=== PATIENT | female | born 1975 | race Caucasian/White ===

== ENCOUNTER 2016-04-17 10:07 | Emergency (ER) | payer BC, OTHER ==
[~2016-04-17] VITALS: Ht 170.2 cm; Wt 70.4 kg
[~2016-04-17 10:07] MED LIST: MTR600X PO; PRENTAB26 PO
[2016-04-17 10:27] VITALS: TEMP 36.8; Ht 170.2 cm; Wt 70.4 kg
[2016-04-17] MEDS ORDERED: ONDANSETRON INJ 2 MG/ML 2 ML VIAL ONE (10:38)
[2016-04-17] MEDS ORDERED: MoRPHine SULFATE 2 MG/ML CARP ONE (10:38)
[2016-04-17] MEDS ORDERED: MoRPHine SULFATE 4 MG/ML 1 ML CARP\\VIAL ONE (10:38)
[2016-04-17] MEDS ORDERED: BCPILLS PO (10:54)
[2016-04-17] MEDS ORDERED: SODIUM CHLORIDE 0.9% 1000ML 500 ML IV ONE (11:01)
[2016-04-17] MEDS ORDERED: ONDANSETRON INJ 2 MG/ML 2 ML VIAL IV STA (11:01)
[2016-04-17 11:14] LABS: HEMATOCRIT 44.2 % (37-47); MEAN CELL VOLUME 88.4 fL (80-100); MEAN CORPUSCULAR HEMOGLOBIN 30.2 pg (25-34); MEAN CORPUSCULAR HGB CONC 34.2 g/dl (32-36); MEAN PLATELET VOLUME 10.1 fL (7.4-10.4); PLATELET COUNT 252 K/uL (130-400); WHITE BLOOD COUNT 7.27 K/uL (4.8-10.8)
[2016-04-17] MEDS ORDERED: MoRPHine SULFATE 10 MG/ML CARP/VIAL IV PRN (11:15)
[2016-04-17 11:22] LABS: BUN/CREATININE RATIO 15.1 (10-20); CREATININE 0.83 mg/dl (0.60-1.20); POTASSIUM 3.7 mmol/L (3.5-5.1)
[2016-04-17] MEDS ORDERED: SODIUM CHLORIDE 0.9% 1000ML 1,000 ML IV STA (11:58)
--- NOTE | 2016-04-17 13:05 | DIAGNOSTIC IMAGING REPORT ---
CT OF THE ABDOMEN AND PELVIS WITHOUT CONTRAST, STONE PROTOCOL CLINICAL HISTORY: Right flank pain. COMPARISON STUDY: Pelvic ultrasound November 04, 2015. TECHNIQUE: Helical axial images of the abdomen and pelvis were obtained without IV or oral contrast according to renal stone protocol. FINDINGS: Multiple bilateral renal calculi measure up to 5 mm. There is mild right periureteral infiltration. No ureteral calculus is present. There is mild right hydronephrosis and hydroureter. Evaluation of the remainder of the abdomen and pelvis is suboptimal on this unenhanced exam. Size of the spleen is at the upper limits of normal. Unenhanced images of liver, spine adrenal glands and pancreas are normal. There is no evidence for a bowel obstruction. There is no lymphadenopathy. A tampon is in place. Skeletal structures are unremarkable. IMPRESSION: 1. Mild right hydronephrosis and mild right perinephric and periureteral infiltration. No ureteral calculus. The findings suggest a recently passed right sided calculus. An infectious process could appear similar. 2. Bilateral nephrolithiasis. Electronically signed by: Byron Restrepo M.D. 04/17/2016 1:03 PM Dictated Date/Time: 04/17/2016 12:58 PM
[2016-04-17 13:20] LABS: URINE APPEARANCE CLEAR (CLEAR); URINE BILIRUBIN NEG (NEG); URINE COLOR YELLOW; URINE NITRITE NEG (NEG); URINE SPECIFIC GRAVITY 1.014 (1.000-1.030); UROBILINOGEN NEG (NEG)
[2016-04-17 13:25] LABS: MANUAL MICROSCOPIC REQUIRED? NO; REVIEW REQ? YES
[2016-04-17 13:38] LABS: ZZUR CULT IF INDIC CLEAN CATCH YES
[2016-04-17] MEDS ORDERED: OXYC-57 PO (14:00)
--- NOTE | 2016-04-17 14:01 | EMERGENCY ROOM VISIT NOTE ---
ED Visit Note First contact with patient: 11:36 CHIEF COMPLAINT: Right flank pain x 6 hours HISTORY OF PRESENT ILLNESS: Patient is a 40-year-old white female with known history of kidney stones who presents to the emergency department for evaluation of right-sided flank pain with associated nausea and vomiting that started acutely around 4:00 in the morning. Patient states that she woke with a dull, achy right back pain that radiated to her right flank and right lower quadrant. It steadily worsened and around 8:00 she had some loose bowel movements, nausea and vomiting. She states that this is very similar to her prior kidney stone which she experienced last in 2008. She states that she has required lithotripsy and stent placement for her kidney stones in the past. She is probably menstruating. She denies any fever. At the time of my evaluation of the patient, she had received morphine and Zofran per critical pathways and was much more comfortable. She had originally rated her pain a 10/ 10, at my evaluation, she reported that she was pain-free. She is noting more pressure in the right groin area presently. REVIEW OF SYSTEMS: Review of systems as per HPI. All other systems reviewed were negative. 10 systems reviewed. PMH: Electronic medical records are reviewed and summarized as above/below. See Problem List. SOCIAL HISTORY: Patient lives at home with her family. Nonsmoker. PHYSICAL EXAM: Vital Signs: Reviewed Nurse's notes. CONSTITUTIONAL: Patient is a well-appearing 40-year-old white female who is awake and alert and laying on the gurney in no acute distress. A family members at the bedside. EYES: Pupils equal, round, reactive to light and accommodation. EOMs intact without nystagmus. Sclera are anicteric. ENT: Tympanic membranes intact, with normal landmarks. External canals are clear. Oral and nasopharynx are clear. Mucous membranes are moist, no lesions , tongue and gums appear normal. NECK: No bruits auscultated. Supple without lymphadenopathy. No thyromegaly. No meningeal signs. Full active range of motion without discomfort. CARDIOVASCULAR: Regular rate and rhythm, with normal S1 and S2, no murmur or gallop or rub is heard. No carotid bruits auscultated. No JVD. Peripheral pulses easily palpable. RESPIRATORY: Breath sounds equal and clear to auscultation without wheezes, rales, or rhonchi heard. Full and equal chest expansion without accessory muscle use or retractions. ABDOMEN: Bowel sounds are present. Abdomen is soft, nontender and nondistended. No guarding or rebound. INTEGUMENTARY: No lesions or rash, normal skin turgor. LYMPH: No lymphadenopathy. EMERGENCY DEPARTMENT COURSE: The patient was seen and assessed as above. Her old records are reviewed. As mentioned above, critical pathways had been implemented prior to my evaluation of the patient. IV access was obtained. She was hydrated with normal saline solution. Patient received Zofran 4 mg and morphine 6 mg IV per critical. CBC, BMP, and urinalysis were performed. I did discuss with the patient imaging options. 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 Patient's laboratory studies revealed a normal white count. She is not anemic. Electrolytes and renal function are normal. Urinalysis demonstrates 2+ occult blood and 10-30 rbc's, no other indicators for infection. This is likely related to her kidney stone as well as possible contamination from her menses. Patient went for CAT scan. I was notified by her nurse that when they strained the urine that she had provided for urinalysis, there was debris and a small stone in the urine. CT demonstrated multiple bilateral renal calculi measuring up to 5 mm. There is mild right periureteral infiltration, hydronephrosis and hydroureter, but no evidence for right-sided ureteral calculus. No other acute pathology was noted. The patient was reassessed and made aware of the results of her laboratory and diagnostic imaging studies. It appears that she has passed the stone. This findings on CT scan I suspect are more likely related to the passed stone and less likely related to infection given her presentation and findings on urinalysis. Differential diagnoses also included UTI, pyelonephritis, ovarian cyst, ovarian torsion, , ectopic , among others. The patient continued to remain pain-free while in the emergency Department completing the remainder of her workup. Supportive care measures were discussed. She was amenable to a small prescription for something for pain, but did not feel that she would need it moving forward. She rated her discomfort a 3/[address] OF THE ABDOMEN AND PELVIS WITHOUT CONTRAST, STONE PROTOCOL CLINICAL HISTORY: Right flank pain. COMPARISON STUDY: Pelvic ultrasound November 04, 2015. TECHNIQUE: Helical axial images of the abdomen and pelvis were obtained without IV or oral contrast according to renal stone protocol. FINDINGS: Multiple bilateral renal calculi measure up to 5 mm. There is mild right periureteral infiltration. No ureteral calculus is present. There is mild right hydronephrosis and hydroureter. Evaluation of the remainder of the abdomen and pelvis is suboptimal on this unenhanced exam. Size of the spleen is at the upper limits of normal. Unenhanced images of liver, spine adrenal glands and pancreas are normal. There is no evidence for a bowel obstruction. There is no lymphadenopathy. A tampon is in place. Skeletal structures are unremarkable. IMPRESSION: 1. Mild right hydronephrosis and mild right perinephric and periureteral infiltration. No ureteral calculus. The findings suggest a recently passed right sided calculus. An infectious process could appear similar. 2. Bilateral nephrolithiasis. Problem List Medical Problems: (1) Calculus Of Kidney Status: Chronic (2) Encounter for supervision of elderly multigravida in third trimester, antepartum Status: Resolved (3) Threatened miscarriage Status: Resolved Surgical Problems: (1) H/O section Status: Resolved (2) History of lithotripsy Status: Resolved Current/Historical Medications Scheduled Control Pills ( Control Pills), 1 TAB PO DAILY Scheduled PRN Oxycodone/Acetaminophen 5MG/325MG (Percocet 5MG/325MG), 1 TAB PO Q4H PRN for Pain Allergies Coded Allergies: Pomegranate (Verified Allergy, Unknown, HIVES, 04/17/16) Vital Signs Date Time Temp Pulse Resp B/P Pulse Ox O2 Delivery O2 Flow Rate FiO2 04/17/16 14:13 54 14 157/93 98 04/17/16 13:03 68 16 157/93 98 Room Air 04/17/16 12:09 65 18 134/97 98 Room Air 04/17/16 10:27 36.8 71 18 165/82 99 Room Air Laboratory Results 04/17/16 10:50 04/17/16 10:50 Test 04/17/16 10:50 04/17/16 12:50 Red Blood Count 5.00 M/uL (4.2-5.4) Mean Corpuscular Volume 88.4 fL (80-100) Mean Corpuscular Hemoglobin 30.2 pg (25-34) Mean Corpuscular Hemoglobin Concent 34.2 g/dl (32-36) RDW Standard Deviation 41.0 fL (36.4-46.3) RDW Coefficient of Variation 12.8 % (11.5-14.5) Mean Platelet Volume 10.1 fL (7.4-10.4) Anion Gap 10.0 mmol/L (3-11) Est Creatinine Clear Calc Drug Dose 87.6 ml/min Estimated GFR () 102.2 Estimated GFR (Non- 88.2 BUN/Creatinine Ratio 15.1 (10-20) Calcium Level 9.0 mg/dl (8.5-10.1) Urine Color YELLOW Urine Appearance CLEAR (CLEAR) Urine pH 8.0 (4.5-7.5) Urine Specific [place] 1.014 (1.000-1.030) Urine Protein NEG (NEG) Urine Glucose (UA) NEG (NEG) Urine Ketones NEG (NEG) Urine Occult Blood 2+ (NEG) Urine Nitrite NEG (NEG) Urine Bilirubin NEG (NEG) Urine Urobilinogen NEG (NEG) Urine Leukocyte Esterase NEG (NEG) Urine WBC (Auto) 1-5 /hpf (0-5) Urine RBC (Auto) 10-30 /hpf (0-4) Urine Hyaline Casts (Auto) 1-5 /lpf (0-5) Urine Epithelial Cells (Auto) 5-10 /lpf (0-5) Urine Bacteria (Auto) 1+ (NEG) Urine Renal Epithelial Cells /lpf (0-5) Medications Administered Medications (Trade) Dose Ordered Sig/Jane Route Start Time Stop Time Status Last Admin Dose Admin Morphine Sulfate (MoRPHine SULFATE INJ) 4 mg STK-MED ONCE .ROUTE 04/17/16 10:38 04/17/16 10:40 DC 04/17/16 11:00 4 MG Morphine Sulfate (MoRPHine SULFATE INJ) 2 mg STK-MED ONCE .ROUTE 04/17/16 10:38 04/17/16 10:40 DC 04/17/16 10:38 2 MG Ondansetron HCl 4 mg 4 mg STK-MED ONCE .ROUTE 04/17/16 10:38 04/17/16 10:40 DC 04/17/16 11:01 4 MG Sodium Chloride 500 ml @ 999 mls/hr Q31M ONCE IV 04/17/16 11:01 1/23/17 11:31 DC 04/17/16 11:00 999 MLS/HR Sodium Chloride (Nss 1000ml) 1,000 ml @ 250 mls/hr Q4H STAT IV 04/17/16 11:58 04/17/16 15:37 DC 04/17/16 11:58 250 MLS/HR Departure Information Impression Primary Impression: Renal colic on right side Prescriptions Oxycodone/Acetaminophen 5MG/325MG (PERCOCET 5MG/325MG) Tab 1 TAB PO Q4H Y for Pain, #5 TAB For Initial Treatment Prov: Rose Lennon PA 04/17/16 Referrals Anton Altamirano M.D. (PCP) Patient Instructions My [facility] Additional Instructions DO NOT drive, drink alcohol, operate machinery, or perform dangerous activities today. You were given medications in the ER that can affect your ability to safely function or operate a vehicle. Percocet 5/325 mg: Take 1-2 pills every four hours for breakthrough pain. Avoid alcohol, operating machinery or dangerous equipment, working on ladders or roofs, DRIVING, or situations where being under the influence may be dangerous. It is recommended to use an ifyi-cew-hapmsgu stool softener such as Colace, 100mg twice daily while taking this medication to avoid constipation. Ibuprofen(Motrin, Advil) may be used for fever or pain. Use 600mg every six hours as needed. Take with food. Avoid using more than 2400mg in a 24 hour period. Do not use 2400mg per day for more than three consecutive days without physician direction. Prolonged inappropriate use can lead to stomach upset or ulcers. This medication can be taken if you need to drive, work, or perform activities which may be dangerous when taking narcotic pain medication. (AND/OR) Acetaminophen(Tylenol) may be used for fever or pain. Use 1000mg every six hours as needed. Avoid using more than 4000mg in a 24 hour period. This medication can be taken if you need to drive, work, or perform activities which may be dangerous when taking narcotic pain medication. Rest and avoid strenuous activity until your stone passes and symptoms resolve. Drink plenty of fluids. Continue current medications. Return to the ER for worsening abdominal or back pain, vomiting, fevers, passing out, or as needed. Follow up with your primary care provider for further care and management.
[2016-04-17 14:13] VITALS: BP 157/93; PULSE 54; O2SAT 98
== END 2016-04-17 14:17 | disposition home or self-care (01) ==
LOC: C.EDB 10:07
DX: N23 Unspecified renal colic (principal)

== ENCOUNTER → 2016-12-15 | Outpatient (CLI) | payer OTHER ==
[~2016-12-15] MED LIST changes: +BCPILLS PO; +FLM4 PO; -MTR600X PO; +NORE-14 PO; +OXYC1TAB3 PO; -PRENTAB26 PO; +SULF800T23 PO; +TRD10 PO; +ZFRODT4HP PO
--- NOTE | 2016-12-15 15:47 | MAMMOGRAPHY REPORT ---
BILATERAL DIGITAL SCREENING MAMMOGRAM TOMOSYNTHESIS WITH CAD: 12/15/2016 CLINICAL HISTORY: Routine screening. TECHNIQUE: Breast tomosynthesis in addition to standard 2D mammography was performed. Current study was also evaluated with a Computer Aided Detection (CAD) system. COMPARISON: Comparison is made to exams dated: 12/27/2015 mammogram, 12/27/2015 ultrasound, 04/22/2013 mammogram, and 12/14/2015 mammogram - [facility]. BREAST COMPOSITION: The tissue of both breasts is heterogeneously dense, which may obscure small mas ses. FINDINGS: No suspicious masses, calcifications, or areas of architectural distortion are noted in ei ther breast. There has been no significant interval change compared to prior exams. IMPRESSION: ACR BI-RADS CATEGORY 1: NEGATIVE There is no mammographic evidence of malignancy. A 1 year screening mammogram is recommended. The pa tient will receive written notification of the results. Approximately 10% of breast cancers are not detected with mammography. A negative mammographic report should not delay biopsy if a clinically suggestive mass is present. Simi Puga M.D. ah/:12/15/2016 12:58:14 [employer]oom Changeover Operator: Guadalupe GIORDANO(R)(M), [facility] letter sent: Normal 1/2 BI-RADS Code: ACR BI-RADS Category 1: Negative
== END | disposition home or self-care (01) ==
LOC: C.MAMM 10:25
PROVIDERS: ATTEND Obstetrics & Gynecology
DX: Z12.31 Encounter for screening mammogram for malignant neoplasm of breast (principal)

== ENCOUNTER 2016-12-17 11:32 | Emergency (ER) | payer OTHER ==
[~2016-12-17] VITALS: Ht 170.2 cm; Wt 72.0 kg
[~2016-12-17 11:32] MED LIST changes: -FLM4 PO; -NORE-14 PO; -OXYC1TAB3 PO; -SULF800T23 PO; -TRD10 PO; -ZFRODT4HP PO
[2016-12-17 11:34] VITALS: TEMP 36.6; Ht 170.2 cm; Wt 72.0 kg
[2016-12-17] MEDS ORDERED: MoRPHine SULFATE 10 MG/ML CARP/VIAL IV STA (12:10)
[2016-12-17] MEDS ORDERED: ONDANSETRON INJ 2 MG/ML 2 ML VIAL IV STA ×2 (12:10→13:31)
[2016-12-17 12:23] LABS: BASO % 0.1 %; BASO ABS # 0.01 K/uL (0-0.2); COMPLETE YES; HEMATOCRIT 41.6 % (37-47); IG% 0.3 %; LYMPH % 5.8 %; LYMPH ABS # 0.63 K/uL (1.2-3.4); MEAN CELL VOLUME 87.9 fL (80-100); MEAN CORPUSCULAR HGB CONC 34.1 g/dl (32-36); MEAN PLATELET VOLUME 9.9 fL (7.4-10.4); MONO % 3.2 %; NEUT % 90.6 %; PLATELET COUNT 244 K/uL (130-400); RED BLOOD COUNT 4.73 M/uL (4.2-5.4); WHITE BLOOD COUNT 10.89 K/uL (4.8-10.8)
[2016-12-17 12:26] LABS: URINE APPEARANCE CLEAR (CLEAR); URINE BILIRUBIN NEG (NEG); URINE COLOR YELLOW; URINE EPITHELIAL CELL AUTO >30 /lpf (0-5); URINE NITRITE NEG (NEG); URINE PH 7.5 (4.5-7.5); URINE SPECIFIC GRAVITY 1.015 (1.000-1.030); UROBILINOGEN NEG (NEG); ZZUR CULT IF INDIC CLEAN CATCH NO
[2016-12-17 12:36] LABS: MANUAL MICROSCOPIC REQUIRED? NO; REVIEW REQ? YES; SULFASALICYLIC ACID NEG (NEG)
[2016-12-17 12:52] LABS: ALKALINE PHOSPHATASE 48 U/L (45-117); ALT/SGPT 18 U/L (12-78); AST/SGOT 21 U/L (15-37); BLOOD UREA NITROGEN 11 mg/dl (7-18); BUN/CREATININE RATIO 11.5 (10-20); CALCIUM 8.2 mg/dl (8.5-10.1); CARBON DIOXIDE 23 mmol/L (21-32); CHLORIDE 102 mmol/L (98-107); CREATININE 0.98 mg/dl (0.60-1.20); GLUCOSE 107 mg/dl (70-99); POTASSIUM 4.1 mmol/L (3.5-5.1); SODIUM 133 mmol/L (136-145)
[2016-12-17] MEDS ORDERED: HYDROmorphone INJ 1 MG/ML SYR IV ONE (13:45)
[2016-12-17] MEDS ORDERED: OXYC1TAB3 PO (14:05)
[2016-12-17 14:35] VITALS: BP 159/98; PULSE 83; O2SAT 97
--- NOTE | 2016-12-17 15:18 | EMERGENCY ROOM VISIT NOTE ---
History Report prepared by Beverlyibmehul: Annmarie Wilson Under the Supervision of: Dr. Arnaud Cervantes D.O. First contact with patient: 11:42 Chief Complaint: FLANK PAIN Stated Complaint: LEFT FLANK PAIN/KIDNEY STONE History of Present Illness The patient is a 41 year old female who presents to the Emergency Room with complaints of persistent left sided flank pain since 0300 this morning. She rates her pain as a 10/10 in severity and states it woke her from sleep. She admits to a history of kidney stones and went to [facility] earlier this morning where a 4 mm left sided stone was seen via CT scan. The patient states they gave her Toradol, Zofran and Flomax and told her to follow up if her symptoms worsened. Her pain has only improved minimally and she has become increasingly nauseous and vomited once she got home. Since her symptoms have worsened, she decided to come here to [facility] for further treatment. The patient denies any hematuria or dysuria. The only abdominal surgeries she has undergone is 2 sections. Source of History: patient Onset: 299 this morning Position: back (left flank) Symptom Intensity: 10/10 Timing: other (persistent) Modifying Factors (Relieving): other (Toradol, Flomax) Associated Symptoms: + nausea, + vomiting, No urinary symptoms Review of Systems See HPI for pertinent positives & negatives. A total of 10 systems reviewed and were otherwise negative. Past Medical & Surgical Medical Problems: (1) Calculus Of Kidney (2) Encounter for supervision of elderly multigravida in third trimester, antepartum (3) Threatened miscarriage Surgical Problems: (1) H/O section (2) History of lithotripsy Social History Smoking Status: Never Smoker Alcohol Use: occasionally Drug Use: none Marital Status: Housing Status: lives with family Occupation Status: employed Current/Historical Medications Scheduled Control Pills ( Control Pills), 1 TAB PO DAILY Scheduled PRN Oxycodone Ir (Roxicodone Ir), 1-2 TAB PO Q4H PRN for Pain Allergies Coded Allergies: Pomegranate (Verified Allergy, Unknown, HIVES, 12/17/16) Physical Exam Vital Signs Date Time Temp Pulse Resp B/P (MAP) Pulse Ox O2 Delivery O2 Flow Rate FiO2 12/17/16 14:35 83 16 159/98 97 12/17/16 13:33 83 22 205/105 99 Room Air 12/17/16 11:34 36.6 73 20 192/103 100 Room Air Physical Exam GENERAL: Patient is alert, sitting up in bed, disheveled, in moderate distress, holding her left flank EYE EXAM: normal conjunctiva OROPHARYNX: no exudate, no erythema, lips, buccal mucosa, and tongue normal and mucous membranes are moist NECK: supple, no nuchal rigidity, no adenopathy, non-tender LUNGS: Clear to auscultation. Normal chest wall mechanics HEART: no murmurs, S1 normal and S2 normal ABDOMEN: abdomen soft, non-tender, normo-active bowel sounds, no masses, no rebound or guarding. BACK: Back is symmetrical on inspection and there is no deformity, no midline tenderness, no CVA tenderness. SKIN: no rashes and no bruising UPPER EXTREMITIES: upper extremities are grossly normal. LOWER EXTREMITIES: No pitting edema. NEURO EXAM: Normal sensorium, cranial nerves II-XII intact, normal speech, no weakness of arms, no weakness of legs. Gross sensation intact. Medical Decision & Procedures Laboratory Results 12/17/16 12:05 Red Blood Count 4.73, Mean Corpuscular Volume 87.9, Mean Corpuscular Hemoglobin 30.0, Mean Corpuscular Hemoglobin Concent 34.1, Mean Platelet Volume 9.9, Neutrophils (%) (Auto) 90.6, Lymphocytes (%) (Auto) 5.8, Monocytes (%) (Auto) 3.2, Eosinophils (%) (Auto) 0.0, Basophils (%) (Auto) 0.1, Neutrophils # (Auto) 9.87, Lymphocytes # (Auto) 0.63, Monocytes # (Auto) 0.35, Eosinophils # (Auto) 0.00, Basophils # (Auto) 0.01 12/17/16 12:05 Test 12/17/16 12:00 12/17/16 12:05 Urine Color YELLOW Urine Appearance CLEAR (CLEAR) Urine pH 7.5 (4.5-7.5) Urine Specific [place] 1.015 (1.000-1.030) Urine Protein NEG (NEG) Urine Glucose (UA) NEG (NEG) Urine Ketones TRACE (NEG) Urine Occult Blood TRACE (NEG) Urine Nitrite NEG (NEG) Urine Bilirubin NEG (NEG) Urine Urobilinogen NEG (NEG) Urine Leukocyte Esterase NEG (NEG) Urine WBC (Auto) 1-5 /hpf (0-5) Urine RBC (Auto) 5-10 /hpf (0-4) Urine Hyaline Casts (Auto) 0 /lpf (0-5) Urine Epithelial Cells (Auto) >30 /lpf (0-5) Urine Bacteria (Auto) NEG (NEG) Urine Renal Epithelial Cells /lpf (0-5) Urine Test NEG (NEG) White Blood Count 10.89 K/uL (4.8-10.8) Red Blood Count 4.73 M/uL (4.2-5.4) Hemoglobin 14.2 g/dL (12.0-16.0) Hematocrit 41.6 % (37-47) Mean Corpuscular Volume 87.9 fL (80-100) Mean Corpuscular Hemoglobin 30.0 pg (25-34) Mean Corpuscular Hemoglobin Concent 34.1 g/dl (32-36) Platelet Count 244 K/uL (130-400) Mean Platelet Volume 9.9 fL (7.4-10.4) Neutrophils (%) (Auto) 90.6 % Lymphocytes (%) (Auto) 5.8 % Monocytes (%) (Auto) 3.2 % Eosinophils (%) (Auto) 0.0 % Basophils (%) (Auto) 0.1 % Neutrophils # (Auto) 9.87 K/uL (1.4-6.5) Lymphocytes # (Auto) 0.63 K/uL (1.2-3.4) Monocytes # (Auto) 0.35 K/uL (0.11-0.59) Eosinophils # (Auto) 0.00 K/uL (0-0.5) Basophils # (Auto) 0.01 K/uL (0-0.2) RDW Standard Deviation 40.6 fL (36.4-46.3) RDW Coefficient of Variation 12.6 % (11.5-14.5) Immature Granulocyte % (Auto) 0.3 % Immature Granulocyte # (Auto) 0.03 K/uL (0.00-0.02) Anion Gap 8.0 mmol/L (3-11) Est Creatinine Clear Calc Drug Dose 73.5 ml/min Estimated GFR () 83.0 Estimated GFR (Non- 71.6 BUN/Creatinine Ratio 11.5 (10-20) Calcium Level 8.2 mg/dl (8.5-10.1) Total Bilirubin 0.7 mg/dl (0.2-1) Direct Bilirubin mg/dl (0-0.2) Aspartate Amino Transf (AST/SGOT) 21 U/L (15-37) Alanine Aminotransferase (ALT/SGPT) 18 U/L (12-78) Alkaline Phosphatase 48 U/L (45-117) Total Protein 7.5 gm/dl (6.4-8.2) Albumin 3.7 gm/dl (3.4-5.0) Lipase 155 U/L (73-393) Chemistry Specimen Hemolysis Laboratory results per my review. Medications Administered Medications (Trade) Dose Ordered Sig/Jane Route Start Time Stop Time Status Last Admin Dose Admin Morphine Sulfate (MoRPHine SULFATE INJ) 6 mg NOW STAT IV 12/17/16 12:10 12/17/16 12:11 DC 12/17/16 12:19 6 MG Ondansetron HCl (Zofran Inj) 4 mg NOW STAT IV 12/17/16 12:10 12/17/16 12:11 DC 12/17/16 12:10 4 MG Hydromorphone HCl (Dilaudid Inj) 1 mg ONE ONCE IV 12/17/16 13:45 12/17/16 13:46 DC 12/17/16 13:38 1 MG Ondansetron HCl (Zofran Inj) 4 mg NOW STAT IV 12/17/16 13:31 12/17/16 13:35 DC 12/17/16 13:37 4 MG ED Course ED COURSE: Vital signs were reviewed and showed the patient is hypertensive. The patients medical record was reviewed The above diagnostic studies were performed and reviewed. ED treatments and interventions as stated above. 1154: The patient was evaluated in room B7. A complete history and physical examination was performed. 1210: Zofran 4 mg IV, Morphine Sulfate 6 mg IV. 1330: I reevaluated the patient. She is having more pain. I will place medication orders. 1331: Zofran 4 mg IV. 1345: Dilaudid 1 mg IV. 1430: Upon reevaluation, the patient is feeling better and resting comfortably. I discussed my findings with the patient and she understands and agrees with the treatment plan. Based on the patients age, coexisting illnesses, exam and lab findings the decision to treat as an outpatient was made. The patient remained stable while under my care. The patient appeared well at the time of discharge. Medical Decision Differential diagnoses includes but is not limited to gastritis, peptic ulcer disease, GERD, gallbladder disease, pancreatitis, small bowel obstruction, acute coronary syndrome, pericarditis, ischemic bowel, irritable bowel disease, irritable bowel syndrome, appendicitis, diverticulitis, malignancy, hernia, urinary tract infection, torsion, /ectopic , perforation, trauma, infectious. Patient is a 41-year-old female who presents to the ER for left sided flank pain. Patient notes that this has been worsening since 3 AM this morning. Patient notes that this feels like her previous kidney stone. She does have nausea vomiting. She was seen at an outside ER and had a CT done earlier today which showed a 4 mm proximal obstructing stone. UA shows no signs of infection. Afebrile. CBC shows a white count of 10.8 thousand. BMP all LFTs, bilirubin lipase is unremarkable. was negative. With the recent CT I did not elect to perform any imaging. She is given IV hydration and Dilaudid with improvement of her pain. Home medications were adjusted following review of the PDMP. She was initially not given any narcotics upon discharge from the ER earlier today. I did discharge her with OxyIR and she will continue taking Flomax. She has followed up with not many urology previously and will follow- up with them again this time for her renal colic. Discussed with Pt concerning signs and symptoms to watch out for. Pt was instructed to follow up with their PCP and discussed with the patient their option to return to the ED at anytime for persistent or worsening symptoms. The appropriate anticipatory guidance and out-patient management, including indications for return to the emergency department, were explained at length to the patient and understood. [place] Drug Monitoring Program Search Results: patient reviewed within database, no issues identified Medication Reconcilliation Current Medication List: was personally reviewed by me Blood Pressure Screening Patient's blood pressure: Elevated blood pressure Blood pressure disposition: Elevated BP felt to be situational Impression Primary Impression: Renal colic Additional Impression: Right flank pain Scribe Attestation The scribe's documentation has been prepared under my direction and personally reviewed by me in its entirety. I confirm that the note above accurately reflects all work, treatment, procedures, and medical decision making performed by me. Departure Information Dispostion Home / Self-Care Prescriptions Oxycodone Ir (Roxicodone Ir) 5 Mg Tab 1-2 TAB PO Q4H Y for Pain, #15 TAB Prov: Arnaud Cervantes, DO 12/17/16 Referrals Anton Altamirano M.D. 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 Any worsening of your symptoms, please return to the ED immediately. This includes any fevers greater than 100.4, worsening pain, chest pain, shortness breath, persistent nausea, vomiting, unable to eat or drink, or any other concerning signs or symptoms from your standpoint. You were given medications during this visit that will inhibit your ability to drive, operate machinery and work. Please do NOT drive, operate machinery or work for the next 12hrs. You were also given a prescription for a narcotic. While taking this medication you should also not drive, operate machinery and or work. Problem Qualifiers
== END 2016-12-17 14:35 | disposition home or self-care (01) ==
LOC: C.EDB 11:33
DX: N23 Unspecified renal colic (principal); Z87.440 Personal history of urinary (tract) infections; Z79.3 Long term (current) use of hormonal contraceptives; R03.0 Elevated blood-pressure reading, without diagnosis of hypertension

== ENCOUNTER 2016-12-20 15:03 | Emergency (ER) | payer OTHER ==
[~2016-12-20] VITALS: Ht 170.2 cm; Wt 71.9 kg
[~2016-12-20 15:03] MED LIST changes: +OXYC1TAB3 PO
[2016-12-20 15:09] VITALS: TEMP 36.9; Ht 170.2 cm; Wt 71.9 kg
--- NOTE | 2016-12-20 16:39 | EMERGENCY ROOM VISIT NOTE ---
History First contact with patient: 16:20 Chief Complaint: UNABLE TO VOID Stated Complaint: LT URETER KIDNEY STONE, UNABLE TO URINATE Nursing Triage Summary: Patient reports "I have a left kidney stone and I am unable to pee since this morning. I am hurting and having a burning sensation. I have pain on my left flank and groin area." History of Present Illness The patient is a 41 year old female who presents to the Emergency Room via private vehicle accompanied by female with complaints of "left ureter kidney stone, unable to urinate". The patient states that Sunday she developed left back pain, this progressed. She notes that she was seen [facility], and had a CT scan performed of the abdomen and pelvis without intravenous contrast. It revealed she has an obstructing left proximal ureter 4 mm stone, with mild left hydronephrosis. She notes that she went home Sunday, but decided to come here for further evaluation and management. She notes that her pain was controlled, therefore was sent home. She states that she has been using the Flomax daily, Toradol every 6 hours, as well as Zofran for nausea and vomiting. The patient states that she was able to eat today, and is taking OxyIR at night. She states that she notes around 10 AM today she had urination as well as spray, and now cannot urinate. She notes minimal dribbling. She declines pain medication at this time. Review of Systems A complete 10-point Review of Systems was discussed with the patient, with pertinent positives and negatives listed in the History of Present Illness. All remaining Review of Systems questions can be considered negative unless otherwise specified. Past Medical/Surgical History Medical Problems: (1) Calculus Of Kidney (2) Encounter for supervision of elderly multigravida in third trimester, antepartum (3) Threatened miscarriage Surgical Problems: (1) H/O section (2) History of lithotripsy Family History No pertinent. Social History Smoking Status: Never Smoker Alcohol Use: occasionally Drug Use: none Marital Status: Housing Status: lives with family Occupation Status: employed Current/Historical Medications Scheduled Norethindrone Acet & Eth Estra (Amanda 1.5/30 1.5-30 mg-Mcg), 1 TAB PO DAILY Ondansetron (Ondansetron Odt), 1 TAB PO Q6 Sulfa/Trimethoprim (Bactrim Ds 800MG/160MG), 1 TAB PO BID Scheduled PRN Ketorolac Tromethamine (Ketorolac Tromethamine), 10 MG PO Q6 PRN for Pain Oxycodone Immediate Rel Tab (Roxicodone Ir), 1-2 TAB PO Q4H PRN for Severe Pain Tamsulosin HCl (Tamsulosin HCl), 0.4 MG PO DAILY PRN for TO PASS STONE Physical Exam Vital Signs Date Time Temp Pulse Resp B/P (MAP) Pulse Ox O2 Delivery O2 Flow Rate FiO2 12/20/16 19:59 62 14 150/91 96 12/20/16 19:00 70 23 170/95 95 Room Air 12/20/16 18:12 73 16 164/90 100 Room Air 12/20/16 17:22 70 12/20/16 17:03 97 Room Air 12/20/16 17:01 74 19 164/101 97 Room Air 12/20/16 15:09 36.9 84 18 155/86 99 Room Air Physical Exam VITAL SIGNS - Vital signs and nursing notes were reviewed. Stable. Afebrile. GENERAL -41-year-old female appearing her stated age who is in no acute distress. Communicates well with provider and answers questions appropriately. SKIN - Without rashes. No petechial rashes. HEAD - NC/AT. LUNGS - Chest wall symmetric without accessory muscle use, intercostals retractions, or central cyanosis. Normal vesicular breath sounds CTA B/L. No wheezes, rales, or rhonchi appreciated. CARDIAC - RRR with S1/S2. No murmur, rubs, or gallops appreciated. ABDOMEN - Abdominal contour normal without pulsations or visible masses. BS normoactive all four quadrants. There is suprapubic tenderness, as well as left flank tenderness. No palpable masses, hepatosplenomegaly, or ascites noted. Medical Decision & Procedures ER Provider Diagnostic Interpretation: (RENAL)RETROPERITON COMP CLINICAL HISTORY: 41 years-old Female presenting with Left obstruction 4mm calculus prox ureter on SUNDAY. Pain. TECHNIQUE: Real-time grayscale and limited color Doppler ultrasound imaging of the kidneys and bladder was performed. COMPARISON: CT from 04/17/2016. FINDINGS: Right kidney: Normal echogenicity. Right kidney measures 11.7 cm. The right renal pelvis is minimally dilated versus an extrarenal pelvis. No hydronephrosis. Multiple small hyperechogenic foci with twinkling artifact on color Doppler consistent with renal calculi, the largest measuring 3 mm at the upper pole. A subcentimeter cyst is also noted in the interpolar region, which may have a mural calcification (Bosniak 2). Normal perfusion. Left kidney: Normal echogenicity. Left kidney measures 14.0 cm. Mild pelvocaliectasis. The proximal ureter measures 9 mm in maximal AP dimension. No convincing evidence of calculus or mass. Normal perfusion. Bladder: A mobile 6 mm hyperechogenic shadowing focus with twinkling artifact consistent with calculus noted in the region of the bilateral ureterovesical junctions. No ureteral jets are evident. Other: None. IMPRESSION: 1. Findings concerning for left ureteral calculus at the ureterovesical junction. An additional bladder calculus versus right ureterovesical junction calculus noted. Further evaluation with CT is recommended. 2. Mild left hydronephrosis may be present. 3. Nonobstructing right renal calculi. Electronically signed by: Des Velasco M.D. 12/20/2016 6:17 PM Dictated Date/Time: 12/20/2016 6:12 PM Laboratory Results 12/20/16 16:21 Red Blood Count 4.51, Mean Corpuscular Volume 88.0, Mean Corpuscular Hemoglobin 30.4, Mean Corpuscular Hemoglobin Concent 34.5, Mean Platelet Volume 9.6, Neutrophils (%) (Auto) 73.3, Lymphocytes (%) (Auto) 17.5, Monocytes (%) (Auto) 8.4, Eosinophils (%) (Auto) 0.4, Basophils (%) (Auto) 0.3, Neutrophils # (Auto) 5.31, Lymphocytes # (Auto) 1.27, Monocytes # (Auto) 0.61, Eosinophils # (Auto) 0.03, Basophils # (Auto) 0.02 12/20/16 16:21 Test 12/20/16 16:21 12/20/16 18:25 White Blood Count 7.25 K/uL (4.8-10.8) Red Blood Count 4.51 M/uL (4.2-5.4) Hemoglobin 13.7 g/dL (12.0-16.0) Hematocrit 39.7 % (37-47) Mean Corpuscular Volume 88.0 fL (80-100) Mean Corpuscular Hemoglobin 30.4 pg (25-34) Mean Corpuscular Hemoglobin Concent 34.5 g/dl (32-36) Platelet Count 248 K/uL (130-400) Mean Platelet Volume 9.6 fL (7.4-10.4) Neutrophils (%) (Auto) 73.3 % Lymphocytes (%) (Auto) 17.5 % Monocytes (%) (Auto) 8.4 % Eosinophils (%) (Auto) 0.4 % Basophils (%) (Auto) 0.3 % Neutrophils # (Auto) 5.31 K/uL (1.4-6.5) Lymphocytes # (Auto) 1.27 K/uL (1.2-3.4) Monocytes # (Auto) 0.61 K/uL (0.11-0.59) Eosinophils # (Auto) 0.03 K/uL (0-0.5) Basophils # (Auto) 0.02 K/uL (0-0.2) RDW Standard Deviation 41.0 fL (36.4-46.3) RDW Coefficient of Variation 12.7 % (11.5-14.5) Immature Granulocyte % (Auto) 0.1 % Immature Granulocyte # (Auto) 0.01 K/uL (0.00-0.02) Prothrombin Time 10.0 SECONDS (9.0-12.0) Prothromb Time International Ratio 0.9 (0.9-1.1) Activated Partial Thromboplast Time 26.8 SECONDS (21.0-31.0) Partial Thromboplastin Ratio 1.0 Anion Gap 9.0 mmol/L (3-11) Est Creatinine Clear Calc Drug Dose 65.5 ml/min Estimated GFR () 72.2 Estimated GFR (Non- 62.3 BUN/Creatinine Ratio 9.0 (10-20) Calcium Level 9.2 mg/dl (8.5-10.1) Total Bilirubin 0.9 mg/dl (0.2-1) Aspartate Amino Transf (AST/SGOT) 14 U/L (15-37) Alanine Aminotransferase (ALT/SGPT) 18 U/L (12-78) Alkaline Phosphatase 63 U/L (45-117) Total Protein 7.6 gm/dl (6.4-8.2) Albumin 3.5 gm/dl (3.4-5.0) Globulin 4.1 gm/dl (2.5-4.0) Albumin/Globulin Ratio 0.9 (0.9-2) Urine Color YELLOW Urine Appearance CLEAR (CLEAR) Urine pH 5.5 (4.5-7.5) Urine Specific [place] 1.011 (1.000-1.030) Urine Protein NEG (NEG) Urine Glucose (UA) NEG (NEG) Urine Ketones NEG (NEG) Urine Occult Blood 2+ (NEG) Urine Nitrite NEG (NEG) Urine Bilirubin NEG (NEG) Urine Urobilinogen NEG (NEG) Urine Leukocyte Esterase SMALL (NEG) Urine WBC (Auto) /hpf (0-5) Urine RBC (Auto) /hpf (0-4) Urine Hyaline Casts (Auto) /lpf (0-5) Urine Epithelial Cells (Auto) /lpf (0-5) Urine Bacteria (Auto) (NEG) Urine RBC 5-10 /hpf (0-4) Urine WBC >30 /hpf (0-5) Urine Epithelial Cells 5-10 /lpf (0-5) Urine Bacteria 2+ (NEG) Urine Test NEG (NEG) Medications Administered Medications (Trade) Dose Ordered Sig/Jane Route Start Time Stop Time Status Last Admin Dose Admin Trimethoprim/ Sulfamethoxazole (Sulfameth/ Trimeth Ds 800/ 160MG Home Pack) 1 homepack UD STAT PO 12/20/16 19:58 12/20/16 19:59 DC 12/20/16 19:58 1 [facility] Medical Decision Patient was seen and evaluated as above. She presents to us today with left flank pain and known stone. She provides a CT report reveals a 4 mm obstructive calculus in the left proximal ureter. She's been taking Flomax and pain medicine with minimal relief. She notes now she cannot urinate. Ultrasound was obtained, with results as above. Shortly after she came back from ultrasound, she notes that she began to urinate, and past a stone. She then notes some relief of her symptoms. Flank pain has not worsened. I suspect she passed a stone identified on ultrasound. I offered her a CT scan of the abdomen and pelvis and decision was made to not do this. No concern leukocytosis or anemia. Coags normal. Metabolic panel reveals potassium slightly low at 3.3, creatinine is slightly up at 1.1, I suspect this may be likely secondary to the stone. No evidence of liver failure. Urine does reveal 2+ blood, a small amount of leukocytes, as well as red blood cells, white blood cells and bacteria. I suggested negative. I suspect the bacterium secondary to passage of the stone, but we'll treat as though she may have an underlying UTI. I do not suspect pyelonephritis. She'll be given Bactrim for 7 days. First dose was given here. She appears stable for outpatient management. She is to follow-up with her family doctor regarding the findings of the ultrasound to include but not limited to the renal cyst which she was educated upon. She was educated upon worrisome symptoms in which to return, had questions answered prior to discharge, and was discharged home in good condition. In evaluation treatment this patient following differential diagnoses were entertained: UTI, pyelonephritis, renal calculi, among others. Impression Primary Impression: Ureteral calculi Additional Impression: Hypokalemia Departure Information Dispostion Home / Self-Care Condition GOOD Prescriptions Sulfa/Trimethoprim (Bactrim Ds 800MG/160MG) Tab 1 TAB PO BID for 6 Days, #12 TAB Prov: Orville Daniels PA-C 12/20/16 Referrals Anton Altamirano M.D. (PCP) Lencho Guerrero M.D. Patient Instructions Hypokalemia Dc, My [facility] Additional Instructions You have been treated in the Emergency Department for a kidney stone and possible Urinary Tract Infection (UTI). You have been prescribed Bactrim to be taken twice daily for 7 days. This is an antibiotic. All antibiotics have the potential to cause diarrhea. Stop this medication and contact a medical provider if you were to develop any significant adverse side effects including: wheezing, shortness of breath, passing out, vomiting, or a diffuse rash. Always take antibiotics as directed and COMPLETE the ENTIRE course regardless of the improvement of your symptoms. For pain control, you can use the following [id number] medicines (if >12 yo): - Regular strength (325mg/tab) Tylenol (acetaminophen) 2 tabs every 4-6 hours as needed. Do not exceed 12 tablets in a 24 hour period. Avoid taking more than 3 grams (3000 mg) of Tylenol per day. This includes any other sources of acetaminophen you may take on a regular basis. - Regular strength (200 mg/tab) Advil (ibuprofen) 1-2 tabs every 4-6 hours as needed. Do not exceed a dose of 3200 mg per day. Return to the emergency department if your symptoms worsen despite treatment course outlined above. Drink plenty of water and stay well hydrated. As with any trip to the Emergency Department, you should follow-up with your Primary Care Provider from today's visit. Return to the emergency department if your symptoms persist despite treatment plan outlined above or if the following symptoms occur: increased fevers, chills , low back pain, nausea/vomiting, or blood in your urine. Problem Qualifiers
[2016-12-20 16:54] LABS: BASO % 0.3 %; BASO ABS # 0.02 K/uL (0-0.2); COMPLETE YES; EOS % 0.4 %; HEMATOCRIT 39.7 % (37-47); IG% 0.1 %; LYMPH % 17.5 %; LYMPH ABS # 1.27 K/uL (1.2-3.4); MEAN CORPUSCULAR HEMOGLOBIN 30.4 pg (25-34); MEAN CORPUSCULAR HGB CONC 34.5 g/dl (32-36); MEAN PLATELET VOLUME 9.6 fL (7.4-10.4); MONO % 8.4 %; NEUT % 73.3 %; PLATELET COUNT 248 K/uL (130-400); RED BLOOD COUNT 4.51 M/uL (4.2-5.4); WHITE BLOOD COUNT 7.25 K/uL (4.8-10.8)
[2016-12-20 17:03] VITALS: O2SAT 97
[2016-12-20 17:06] LABS: INR 0.9 (0.9-1.1)
[2016-12-20 17:14] LABS: CALCIUM 9.2 mg/dl (8.5-10.1); CREATININE 1.1 mg/dl (0.60-1.20); POTASSIUM 3.3 mmol/L (3.5-5.1)
[2016-12-20] MEDS ORDERED: NORE-14 PO (17:16)
[2016-12-20] MEDS ORDERED: TRD10 PO (17:16)
[2016-12-20] MEDS ORDERED: OXYC1TAB3 PO (17:16)
[2016-12-20] MEDS ORDERED: ZFRODT4HP PO (17:16)
[2016-12-20] MEDS ORDERED: FLM4 PO (17:16)
[2016-12-20 17:17] LABS: ALB/GLOB RATIO 0.9 (0.9-2)
--- NOTE | 2016-12-20 18:18 | DIAGNOSTIC IMAGING REPORT ---
(RENAL)RETROPERITON COMP CLINICAL HISTORY: 41 years-old Female presenting with Left obstruction 4mm calculus prox ureter on SUNDAY. Pain. TECHNIQUE: Real-time grayscale and limited color Doppler ultrasound imaging of the kidneys and bladder was performed. COMPARISON: CT from 04/17/2016. FINDINGS: Right kidney: Normal echogenicity. Right kidney measures 11.7 cm. The right renal pelvis is minimally dilated versus an extrarenal pelvis. No hydronephrosis. Multiple small hyperechogenic foci with twinkling artifact on color Doppler consistent with renal calculi, the largest measuring 3 mm at the upper pole. A subcentimeter cyst is also noted in the interpolar region, which may have a mural calcification (Bosniak 2). Normal perfusion. Left kidney: Normal echogenicity. Left kidney measures 14.0 cm. Mild pelvocaliectasis. The proximal ureter measures 9 mm in maximal AP dimension. No convincing evidence of calculus or mass. Normal perfusion. Bladder: A mobile 6 mm hyperechogenic shadowing focus with twinkling artifact consistent with calculus noted in the region of the bilateral ureterovesical junctions. No ureteral jets are evident. Other: None. IMPRESSION: 1. Findings concerning for left ureteral calculus at the ureterovesical junction. An additional bladder calculus versus right ureterovesical junction calculus noted. Further evaluation with CT is recommended. 2. Mild left hydronephrosis may be present. 3. Nonobstructing right renal calculi. Electronically signed by: Des Velasco M.D. 12/20/2016 6:17 PM Dictated Date/Time: 12/20/2016 6:12 PM
[2016-12-20 18:41] LABS: URINE APPEARANCE CLEAR (CLEAR); URINE BILIRUBIN NEG (NEG); URINE COLOR YELLOW; URINE NITRITE NEG (NEG); URINE PH 5.5 (4.5-7.5); URINE SPECIFIC GRAVITY 1.011 (1.000-1.030); UROBILINOGEN NEG (NEG); ZZUR CULT IF INDIC CLEAN CATCH YES
[2016-12-20 18:50] LABS: MANUAL MICROSCOPIC REQUIRED? YES; REVIEW REQ? NO
[2016-12-20 18:53] LABS: URINE BACTERIA 2+ (NEG); URINE WBC >30 /hpf (0-5)
[2016-12-20] MEDS ORDERED: SEPTRA DS HOME PACK 1 EA VIAL PO STA (19:58)
[2016-12-20 19:59] VITALS: BP 150/91; PULSE 62; O2SAT 96
[2016-12-20] MEDS ORDERED: SULF800T23 PO (19:59)
== END 2016-12-20 20:10 | disposition home or self-care (01) ==
LOC: C.EDB 15:04
DX: N20.1 Calculus of ureter (principal); E87.6 Hypokalemia; Z87.442 Personal history of urinary calculi

== ENCOUNTER → 2017-01-09 | Outpatient (CLI) | payer OTHER ==
[~2017-01-09] MED LIST changes: -BCPILLS PO; +FLM4 PO; +NORE-14 PO; +TRD10 PO; +ZFRODT4HP PO
== END | disposition home or self-care (01) ==
LOC: C.LABSPEC 17:18
PROVIDERS: ATTEND Urology
DX: N20.0 Calculus of kidney (principal)

== ENCOUNTER 2018-08-23 23:19 | Inpatient (IN) ==
--- OUTSIDE RECORDS SUMMARY | 2018-08-23 23:22 | External Medical Summary | Continuity of Care Document ---
:1975 Author Name Jessica Mckeon, Provider Address Unavailable Unavailable , Care Team Providers Name Role Phone Warren Mckeon, Shade Mora Unavailable [email or web address] Unavailable Unavailable Unavailable Unavailable Problems Nephrolithiasis (592.0) (N20.0) Renal cyst, acquired (593.2) (N28.1) Oral contraceptive prescribed (V25.01) (Z30.011) Encounter for gynecological examination without abnormal finding (V72.31) (Z01.419) Allergies and Adverse Reactions No Known Drug Allergies (Allergy) Other (Allergy) Medications 1.5-30 MG-MCG Oral Table t; TAKE ONE TABLET BY MOUTH ONE TIME DAILY Mike Kelley Start: 04-Jun-2012 Quantity: 28 Refills: 1 Zyrtec TABS Refills: 0 Protonix 40 MG Oral Packet Refills: 0 Procedures History of Laparoscopy With Excision Of Ectopic Status: Completed History of Oral Surgery Tooth Extraction Status: Completed History of Renal Lithotripsy Status: Com pleted History of Section Status: Comp leted Immunizations Influenza (Whole) On: 08-Jan-2015 11:42 Lot #: [id number], [employer] PA[employer]UR Tdap (Adacel) On: 03-Jun-2015 11:30 Lot #: [id number], [employer]OFI PASTEUR Family History Mother Family history of Diabetes Mellitus (V18.0) Status: Active Family history of Hypertension (V17.49) Status: Active Family history of Pure Hypercholesterolemia Status: Active Family history of Atherosclerosis (V17.49) Status: Active Family history of Breast Cancer (V16.3) Status: Active Social History - Smoking Status Unknown if ever smoked Plan of Treatment Planned Encounters Appointment; Shade Kelley M.D. Start: 02-Oct-2018 9:30 Request Planned Observations Planned Goals not documented Results No Known Results Results not documented Encounters Appointment; Lencho Guerrero M.D. 26-Jun-2018 11:30 Encounter Diagnosis: Problem not documented Appointment; Jake Deutsch II, DO 14-Jun-2018 11:00 Encounter Diagnosis: Problem not documented Appointment; Lencho Guerrero M.D. 06-Jun-2018 10:00 Encounter Diagnosis: Problem not documented Appointment; Shade Kelley M.D. 25-Sep-2017 11:10 Encounter Diagnosis: Problem not documented Appointment; Lencho Guerrero M.D. 09-Jan-2017 10:10 Encounter Diagnosis: Problem not documented Appointment; Shade Kelley M.D. 20-Sep-2016 10:00 Encounter Diagnosis: Problem not documented Appointment; Shade Kelley M.D. 02-Oct-2018 9:30 Encounter Diagnosis: Problem not documented
[2018-08-23] MEDS ORDERED: MoRPHine SULFATE 10 MG/ML CARP/VIAL IV PRN (23:29)
[2018-08-23] MEDS ORDERED: SODIUM CHLORIDE 0.9% 500 ML IV STA (23:29)
[2018-08-23] MEDS ORDERED: ONDANSETRON INJ 2 MG/ML 2 ML VIAL IV STA (23:29)
[2018-08-23] MEDS ORDERED: KETOROLAC TROMETHAMINE 15 MG/ML VIAL IV STA (23:29)
[2018-08-23] MEDS ORDERED: MoRPHine SULFATE 4 MG/ML 1 ML CARP\\VIAL ONE (23:40)
[2018-08-23 23:48] LABS: Hematocrit (blood only) 43.7 % (37-47); Hemoglobin 15.5 g/dL (12.0-16.0); Mean Corpuscular Hgb Conc 35.5 g/dL (32-36); Mean Corpuscular Volume 88.6 fL (80-100); Mean Platelet Volume 10.8 fL (7.4-10.4); Platelet Count 216 K/uL (130-400); RDW Coefficient of Variation 12.7 % (11.5-14.5); RDW Standard Deviation 40.7 fL (36.4-46.3); Red Blood Count 4.93 M/uL (4.2-5.4); White Blood Count 7.35 K/uL (4.8-10.8)
[2018-08-24 00:09] LABS: BUN Creatinine Ratio 14.7 (10-20); Calcium 9.3 mg/dl (8.5-10.1); Creatinine Clr Calc Pharmacy 73.5 ml/min; Est GFR (African American) 83.5; Potassium 4.5 mmol/L (3.5-5.1)
[2018-08-24] MEDS ORDERED: MoRPHine SULFATE 4 MG/ML 1 ML CARP\\VIAL ONE (00:11)
[2018-08-24 00:45] LABS: Appearance Urine Clear (Clear); Bacteria Urine Automated Negative (Negative); Bilirubin Urine Negative (Negative); Blood Urine 2+ (Negative); Color Urine Yellow; Glucose Urine UA Negative (Negative); Ketones Urine Negative (Negative); Leukocyte Esterase Urine Negative (Negative); Nitrite Urine Negative (Negative); Protein Urine 1+ (Negative); Urobilinogen Urine Negative (Negative)
--- NOTE | 2018-08-24 00:56 | Emergency Department Note ---
History of Present Illness General Chief complaint: Kidney Stone Stated complaint: KIDNEY STONE History of Present Illness Maximum Pain Intensity: 8 This 42-year-old presents to the ER complaining of severe right flank pain who has a history of kidney stones Location: Right flank Quality: Severe Severity: Severe Duration: Tonight Timing: Symptoms started tonight Context: Patient has a history of kidney stones and symptoms feel similar Modifying factors: better with nothing; worse with nothing Patient follows with Dr. Guerrero. She had lithotripsy 2 months ago. Patient den ies chest pain, dyspnea, fevers, trauma. She complains of nausea and vomiting. Home Medications Home Medications Medication Instructions Recorded Confirmed Type Zyrtec 10 mg PO QAM 06/11/18 08/23/18 History pantoprazole [Protonix] 40 mg PO QAM 06/11/18 08/23/18 History norethindrone-e.estradiol-iron 1 tab PO DAILY 08/23/18 08/23/18 History [ ()] Allergies Allergy/AdvReac Type Severity Reaction Status Date / Time Pomegranate Allergy Intermediate HIVES Uncoded 08/23/18 23:35 Past Med/Surg History Medical History GERD (gastroesophageal reflux disease) History of IBS Kidney stones Migraine Surgical History History of section X 3 History of cystoscopy STENT INSERTION History of laparoscopy ECTOPTIC History of lithotripsy History of myringotomy History of tooth extraction Family History Mother Family history of diabetes mellitus Social History Preferred Language: Moroccan Communication Ability: Effective Beliefs That Will Affect Care: None Current Living Situation: Spouse Feels Safe at Home: Yes Smoking Status: Never smoker Second Hand Exposure: No Hx Alcohol Use: No Hx Substance Use: No Review of Systems All systems reviewed & are unremarkable except as noted in HPI & below Physical Exam Vital Signs Vital Signs - 24 hr 08/23/18 23:21 08/24/18 01:25 08/24/18 02:11 Temperature 36.8 C Temperature Source Oral Sepsis Recent Fever Within 48 Hours No Sepsis Action Taken by Nursing No Action Required Pulse Rate 64 Pulse Rate [Finger] 75 74 Respiratory Rate 18 18 18 Respiratory Effort / Characteristics Non-Labored Spontaneous Respiratory Depth Normal Normal Normal Blood Pressure 222/97 H Blood Pressure [Right Arm] 180/86 H 152/81 H Blood Pressure Mean 138 Blood Pressure Mean [Right Arm] 117 104 Pulse Oximetry 100 97 98 Oxygen Delivery Method Room Air Room Air Room Air VITALS: Vitals are noted on the nurse's note and reviewed by myself. Vital signs hypertensive. GENERAL: White female who appears in severe pain vomiting, in no acute distress, nondiaphoretic, well-developed well-nourished. SKIN: Capillary reflex less than 2 seconds. HEENT: Normocephalic. PERRLA. EOMI. Nares patent. Mucous membranes moist. Neck is supple without nuchal rigidity. HEART: Regular rate and rhythm without murmurs gallops or rubs. LUNGS: Clear to auscultation bilaterally without wheezes, rales or rhonchi. No retractions or accessory muscle use. ABDOMEN: Positive bowel sounds x 4. Normal tympanic percussion. Soft, nontender, without masses or organomegaly. Alvarado sign negative. No guarding or rebound tenderness. No CVA tenderness MUSCULOSKELETAL: No gross musculoskeletal defects. NEURO: Patient was alert and oriented to person place and time. Normal sensation to light and sharp touch. No focal neurological deficits. Course Administered Medications Ioversol (Optiray 320 100ml) 94 ml IV ONCE PRN PRN Reason: Interaction Checking Stop: 08/28/18 01:14 Last Admin: 08/24/18 01:15 Dose: 1 ml Documented by: [id number] Discontinued Medications Hydromorphone HCl (Dilaudid) 0.5 mg IV NOW STA Stop: 08/24/18 01:18 Last Admin: 08/24/18 01:20 Dose: 0.5 mg Documented by: [id number] Sodium Chloride (Nss) 500 mls @ 999 mls/hr IV .Q31M STA Stop: 08/23/18 23:59 Last Infusion: 08/24/18 00:20 Dose: 0 mls/hr Documented by: [id number] Admin: 08/23/18 23:44 Dose: 999 mls/hr Documented by: [id number] Ketorolac Tromethamine (Toradol) 10 mg IV ONE STA Stop: 08/23/18 23:30 Last Admin: 08/23/18 23:43 Dose: 10 mg Documented by: [id number] Metoclopramide HCl (Reglan) 10 mg IV NOW STA Stop: 08/24/18 01:18 Last Admin: 08/24/18 01:20 Dose: 10 mg Documented by: [id number] Morphine Sulfate (Morphine Sulfate) Confirm Administered Dose 4 mg .ROUTE .STK- MED ONE Stop: 08/23/18 23:41 Last Admin: 08/23/18 23:44 Dose: 4 mg Documented by: [id number] Morphine Sulfate (Morphine Sulfate) Confirm Administered Dose 4 mg .ROUTE .STK- MED ONE Stop: 08/24/18 00:12 Last Admin: 08/24/18 00:12 Dose: 4 mg Documented by: [id number] Ondansetron HCl (Zofran) 4 mg IV NOW STA Stop: 08/23/18 23:30 Last Admin: 08/23/18 23:44 Dose: 4 mg Documented by: [id number] Tamsulosin HCl (Flomax) 0.4 mg PO NOW ONE Stop: 08/24/18 02:09 Last Admin: 08/24/18 02:10 Dose: 0.4 mg Documented by: [id number] Medical Decision Making Medical Records Attestation: I reviewed the patient's medical records. Home Medications Current Medication List: was personally reviewed by me Laboratory Data Attestation: I reviewed the patient's lab results. Result diagrams: 08/23/18 23:42 08/23/18 23:42 Lab Results 08/23/18 08/23/18 08/24/18 Range/Units 23:42 23:42 00:34 WBC 7.35 (4.8-10.8) K/uL RBC 4.93 (4.2-5.4) M/uL Hgb 15.5 (12.0-16.0) g/dL Hct 43.7 (37-47) % MCV 88.6 (80-100) fL MCH 31.4 (25-34) pg MCHC 35.5 (32-36) g/dL RDW Std Deviation 40.7 (36.4-46.3) fL RDW Coeff of Charley 12.7 (11.5-14.5) % Plt Count 216 (130-400) K/uL MPV 10.8 H (7.4-10.4) fL Sodium 140 (136-145) mmol/L Potassium 4.5 (3.5-5.1) mmol/L Chloride 109 H (98-107) mmol/L Carbon Dioxide 26 (21-32) mmol/L Anion Gap 5.0 (3-11) BUN 14 (7-18) mg/dl Creatinine 0.97 (0.6-1.2) mg/dl Est Cr Clr Drug Dosing 73.5 ml/min Est GFR ( Amer) 83.5 Est GFR (Non-Af Amer) 72.0 BUN/Creatinine Ratio 14.7 (10-20) Glucose 133 H (70-99) mg/dl Calcium 9.3 (8.5-10.1) mg/dl Specimen Hemolysis Urine Color Yellow Urine Appearance Clear (Clear) Urine pH 7.0 (4.5-7.5) Ur Specific Bowler 1.020 (1.000-1.030) Urine Protein 1+ H (Negative) POC Urine Protein (Negative) Urine Glucose (UA) Negative (Negative) POC Ur Glucose (UA) (Normal) Urine Ketones Negative (Negative) POC Urine Ketones (Negative) Urine Blood 2+ H (Negative) POC Urine Blood (Negative) Urine Nitrite Negative (Negative) POC Urine Nitrite (Negative) Urine Bilirubin Negative (Negative) POC Urine Bilirubin (Negative) Urine Urobilinogen Negative (Negative) POC Urine Urobilinogen (Normal) Ur Leukocyte Esterase Negative (Negative) POC U Leukocyte Esteras (Negative) Urine WBC (Auto) 1-5 (0-5) /hpf Urine RBC (Auto) 5-10 H (0-4) /hpf U Hyaline Cast (Auto) 1-5 (0-5) /lpf U Epithel Cells (Auto) 10-20 H (0-5) /lpf Urine Bacteria (Auto) Negative (Negative) POC Ur Test (NEG) 08/24/18 08/24/18 Range/Units 00:34 00:34 WBC (4.8-10.8) K/uL RBC (4.2-5.4) M/uL Hgb (12.0-16.0) g/dL Hct (37-47) % MCV (80-100) fL MCH (25-34) pg MCHC (32-36) g/dL RDW Std Deviation (36.4-46.3) fL RDW Coeff of Charley (11.5-14.5) % Plt Count (130-400) K/uL MPV (7.4-10.4) fL Sodium (136-145) mmol/L Potassium (3.5-5.1) mmol/L Chloride (98-107) mmol/L Carbon Dioxide (21-32) mmol/L Anion Gap (3-11) BUN (7-18) mg/dl Creatinine (0.6-1.2) mg/dl Est Cr Clr Drug Dosing ml/min Est GFR ( Amer) Est GFR (Non-Af Amer) BUN/Creatinine Ratio (10-20) Glucose (70-99) mg/dl Calcium (8.5-10.1) mg/dl Specimen Hemolysis Urine Color Urine Appearance (Clear) Urine pH (4.5-7.5) Ur Specific Bowler (1.000-1.030) Urine Protein (Negative) POC Urine Protein Trace H (Negative) Urine Glucose (UA) (Negative) POC Ur Glucose (UA) Normal (Normal) Urine Ketones (Negative) POC Urine Ketones Negative (Negative) Urine Blood (Negative) POC Urine Blood 250 H (Negative) Urine Nitrite (Negative) POC Urine Nitrite Negative (Negative) Urine Bilirubin (Negative) POC Urine Bilirubin Negative (Negative) Urine Urobilinogen (Negative) POC Urine Urobilinogen Normal (Normal) Ur Leukocyte Esterase (Negative) POC U Leukocyte Esteras Negative (Negative) Urine WBC (Auto) (0-5) /hpf Urine RBC (Auto) (0-4) /hpf U Hyaline Cast (Auto) (0-5) /lpf U Epithel Cells (Auto) (0-5) /lpf Urine Bacteria (Auto) (Negative) POC Ur Test NEG (NEG) Imaging Data Attestation: I personally reviewed and interpreted this imaging study as follows: Blood Pressure Blood Pressure Findings: Elevated blood pressure Blood Pressure Disposition: Referred to patients primary care provider MDM Narrative Prior records/ancillary studies reviewed. Triage Nursing notes reviewed. Additional history obtained from family. The patient's history was concerning for abdominal pain. Differential diagnosis: Etiologies such as appendicitis, diverticulitis, PUD, biliary pathology, UTI, pancreatitis, obstruction, mesenteric ischemia, aortic pathology, infections, inflammatory bowel disease, renal colic, as well as others were entertained. Physical examination findings: As above. ER treatment provided: IV fluids, Toradol, morphine, Zofran On reassessment the patient felt better. Diagnostics interpreted by me: The labs revealed stable H&H. Hematuria. Negative hCG Imaging studies: CT ABDOMEN & PELVIS With Contrast: Ultrasound today. Prior CT from 12/17/16 5 mm obstructing calculus in the right proximal ureter. Mild right hydroureteronephrosis and surrounding fat stranding. Nonobstructing bilateral renal calculi. Normal appendix. Wall thickening versus partial distention of the urinary bladder. Correlate also for cystitis. Radiologist: Joey Vo M.D. Consultation: A consultation was placed with the hospitalist Dr. Nance. The case was discussed and diagnostics were reviewed. The patient was evaluated in the ER for further treatment. Exam and history seem consistent with right ureteral stone with colic and intractable pain. Patient was given multiple rounds of pain meds. She was given Flomax. Pain persisted. Medicine was consulted and patient is agreeable to treatment plan of possible admission for pain management. By the evaluation outlined above emergent etiologies such as appendicitis, diverticulitis, PUD, biliary pathology, UTI, pancreatitis, obstruction, mesenteric ischemia, aortic pathology, infections, inflammatory bowel disease, as well as others were deemed relatively unlikely. The pt informed about the findings as listed above. All questions were answered and pleased with the treatment. Case reviewed with my attending The chart was completed utilizing [employer] Speech voice recognition software. Grammatical errors, random word insertions, pronoun errors, and incomplete sentences are an occassional consequence of this system due to software limitations, ambient noise, and hardware issues. Any formal questions or concerns about the content, text, or information contained within the body of this dictation should be directly addressed to the physician clinic assistant for clarification. Impression & Plan Renal colic, Ureterolithiasis, Intractable back pain Discharge Plan Visit Data Chief Complaint: Kidney Stone Stated Complaint: KIDNEY STONE ED Provider: Basil Simth ED Midlevel Provider: Lillian Sarkar Discharge Problem: Renal colic, Ureterolithiasis, Intractable back pain Patient Disposition: Being Evaluated by Hospitalist Condition: Good Forms Stand Alone Forms: My [employer] Prescriptions Prescriptions: No Action pantoprazole [Protonix] 40 mg Tablet,Delayed Release (Dr/Ec) 40 mg PO QAM RF: 0 Zyrtec 10 mg Capsule 10 mg PO QAM RF: 0 June FE 1.5/30 (28) 1.5 mg-30 mcg (21)/75 mg (7) tablet 1 tab PO DAILY RF: 0 Referrals Referrals: Anton Altamirano MD [Primary Care Provider] -
[2018-08-24] MEDS ORDERED: IOVERSOL 100ml IV PRN (01:15)
[2018-08-24] MEDS ORDERED: HYDROmorphone INJ 0.5 MG/0.5 ML SYR IV STA (01:17)
[2018-08-24] MEDS ORDERED: METOCLOPRAMIDE HCL INJ 5 MG/ML 2 ML VIAL IV STA (01:17)
[2018-08-24] MEDS ORDERED: TAMSULOSIN HCL 0.4 MG CAP PO ONE (02:08)
[2018-08-24] MEDS ORDERED: cefTRIAXone SODIUM 1,000 MG/50 ML BAG IV STA (04:00)
[2018-08-24] MEDS ORDERED: ONDANSETRON INJ 2 MG/ML 2 ML VIAL IV PRN (04:08)
[2018-08-24] MEDS ORDERED: HYDROmorphone INJ 0.5 MG/0.5 ML SYR IV PRN (04:08)
[2018-08-24] MEDS ORDERED: ACETAMINOPHEN 1,000 MG/100 ML VIAL IV PRN (04:08)
--- NOTE | 2018-08-24 04:42 | History & Physical Report ---
Date of Service August 24, 2018 Assessment & Plan (1) Calculus of proximal right ureter: 5 mm calculus of proximal right ureter/associated mild right hydroureteronephrosis- NPO NSS + KCl 20 medical events at 100 mils per hour. Acetaminophen 1 g IV every 8 hours as needed mild pain or temperature Dilaudid 0.5 mg IV every 3 hours as needed severe pain. Zofran 4 mg IV every 6 hours as needed. Ceftriaxone 1 g IV every 24 hours. Follow urine culture and sensitivity. Consult urology Dr. Guerrero. Present on Admission?: Yes (2) Hydronephrosis of right kidney: See above Present on Admission?: Yes (3) GERD (gastroesophageal reflux disease): Change p.o. pantoprazole to famotidine 20 mg IV every 12 hours Present on Admission?: Yes (4) Allergic rhinitis: Hold Zyrtec Present on Admission?: Yes History of Present Illness Chief Complaint: The patient presents to the emergency department with acute onset of severe right-sided flank pain over the past 24 hours. Primary Care Provider: Anton Altamirano MD The patient is a 42-year-old female with a past medical history including kidney stones, with most recent stone and lithotripsy [address] Guerrero. She reports the onset of pain similar to previous kidney stones. She has also had some nausea and vomiting. She denies any fevers or chills. Allergies Allergy/AdvReac Type Severity Reaction Status Date / Time Pomegranate Allergy Intermediate HIVES Uncoded 08/23/18 23:35 Home Medications Home Medications Medication Instructions Recorded Confirmed Type Zyrtec 10 mg PO QAM 06/11/18 08/23/18 History pantoprazole [Protonix] 40 mg PO QAM 06/11/18 08/23/18 History norethindrone-e.estradiol-iron 1 tab PO DAILY 08/23/18 08/23/18 History [ ()] Past Med/Surg History Medical History GERD (gastroesophageal reflux disease) History of IBS Kidney stones Migraine Surgical History History of section X 3 History of cystoscopy STENT INSERTION History of laparoscopy ECTOPTIC History of lithotripsy History of myringotomy History of tooth extraction Family History Mother Family history of diabetes mellitus Social History Preferred Language: Estonian Communication Ability: Effective Estimating Manager Required: No Beliefs That Will Affect Care: None Current Living Situation: Spouse Other Information That Helps Us Care for You: No Feels Safe at Home: Yes Safety Concerns: Feels Safe At This Time Smoking Status: Never smoker Second Hand Exposure: No Hx Alcohol Use: No Hx Substance Use: No Review of Systems Review of Systems: The patient denies chest pain, palpitations, shortness of breath, dyspnea on exertion, cough, lower extremity swelling, sore throat, fevers, chills, sweats, diarrhea , constipation, blood in urine or stool, dysuria, urinary frequency or urgency, lightheadedness, dizziness, headache, memory loss, loss of consciousness, rash, abnormal bruising or bleeding,imbalance, focal or generalized weakness, numbness or tingling in arms or legs, generalized arthralgias or myalgias, neck pain, or night sweats. The review of systems is otherwise negative other than for that already noted above, and at least 10 systems have been reviewed. Physical Exam Physical Exam: The patient is awake, alert and oriented 3, well developed and well nourished, normocephalic and atraumatic, lying in bed and in no acute distress post pain medication. HEENT--PERRL, EOMI, mucous membranes and oropharynx dry. Neck--supple. No JVD. No bruits. Thyroid normal, trachea midline, no adenopath y. Heart--normal S1 and S2. No murmurs, rubs or gallops. Lungs--clear bilaterally, no respiratory distress, no accessory muscle use. Abdomen--normal bowel sounds and soft. Nontender. Nondistended. Extremities--no cyanosis or clubbing. No edema. There are good distal pulses b/l. Dermatologic--normal skin turgor, normal color, no abnormal lymph nodes, no rash. Neurologic--cranial nerves II through XII grossly intact. Rheumatologic--normal range of motion. Psychiatric--normal affect. Results & Data Vital Signs (Past 12 Hours) Vital Signs Temp Pulse Pulse Resp BP BP Pulse Ox 08/24/18 04:16 98.6 F 66 16 190/102 H 100 08/24/18 03:47 71 16 146/80 H 99 08/24/18 02:11 74 18 152/81 H 98 08/24/18 01:25 75 18 180/86 H 97 08/23/18 23:21 98.2 F 64 18 222/97 H 100 Laboratory Results Laboratory Results WBC 7.35 K/uL (4.8-10.8) 08/23/18 23:42 RBC 4.93 M/uL (4.2-5.4) 08/23/18 23:42 Hgb 15.5 g/dL (12.0-16.0) 08/23/18 23:42 Hct 43.7 % (37-47) 08/23/18 23:42 MCV 88.6 fL (80-100) 08/23/18 23:42 MCH 31.4 pg (25-34) 08/23/18 23:42 MCHC 35.5 g/dL (32-36) 08/23/18 23:42 RDW Std Deviation 40.7 fL (36.4-46.3) 08/23/18 23:42 RDW Coeff of Charley 12.7 % (11.5-14.5) 08/23/18 23:42 Plt Count 216 K/uL (130-400) 08/23/18 23:42 MPV 10.8 fL (7.4-10.4) H 08/23/18 23:42 Sodium 140 mmol/L (136-145) 08/23/18 23:42 Potassium 4.5 mmol/L (3.5-5.1) 08/23/18 23:42 Chloride 109 mmol/L (98-107) H 08/23/18 23:42 Carbon Dioxide 26 mmol/L (21-32) 08/23/18 23:42 5.0 (3-11) 08/23/18 23:42 BUN 14 mg/dl (7-18) 08/23/18 23:42 0.97 mg/dl (0.6-1.2) 08/23/18 23:42 Est Cr Clr Drug Dosing 73.5 ml/min 08/23/18 23:42 Est GFR ( Amer) 83.5 08/23/18 23:42 Est GFR (Non-Af Amer) 72.0 08/23/18 23:42 14.7 (10-20) 08/23/18 23:42 Glucose 133 mg/dl (70-99) H 08/23/18 23:42 Calcium 9.3 mg/dl (8.5-10.1) 08/23/18 23:42 Specimen Hemolysis 08/23/18 23:42 Yellow 08/24/18 00:34 Clear (Clear) 08/24/18 00:34 7.0 (4.5-7.5) 08/24/18 00:34 Ur Specific [place] 1.020 (1.000-1.030) 08/24/18 00:34 1+ (Negative) H 08/24/18 00:34 POC Urine Protein Trace (Negative) H 08/24/18 00:34 Negative (Negative) 08/24/18 00:34 POC Ur Glucose (UA) Normal (Normal) 08/24/18 00:34 Negative (Negative) 08/24/18 00:34 POC Urine Ketones Negative (Negative) 08/24/18 00:34 2+ (Negative) H 08/24/18 00:34 POC Urine Blood 250 (Negative) H 08/24/18 00:34 Negative (Negative) 08/24/18 00:34 POC Urine Nitrite Negative (Negative) 08/24/18 00:34 Negative (Negative) 08/24/18 00:34 POC Urine Bilirubin Negative (Negative) 08/24/18 00:34 Negative (Negative) 08/24/18 00:34 POC Urine Urobilinogen Normal (Normal) 08/24/18 00:34 Ur Leukocyte Esterase Negative (Negative) 08/24/18 00:34 POC U Leukocyte Esteras Negative (Negative) 08/24/18 00:34 1-5 /hpf (0-5) 08/24/18 00:34 5-10 /hpf (0-4) H 08/24/18 00:34 U Hyaline Cast (Auto) 1-5 /lpf (0-5) 08/24/18 00:34 U Epithel Cells (Auto) 10-20 /lpf (0-5) H 08/24/18 00:34 Negative (Negative) 08/24/18 00:34 POC Ur Test NEG (NEG) 08/24/18 00:34 Diagnostic Findings [facility] Patient: JACINTA SIMMONS (Female) Age: 42 MR #: [id number] Status: ER Date: 08/24/18 00:58 Slices: 46 History: RT FLANK PAIN, HX STONE Priors: Tech: Salcedo Allison @ [phone] Exams: US RENAL Accession Numbers: [id number] Preliminary Findings Only See Final Report For Complete Findings US RENAL: 06/06/2018 Mild right hydronephrosis, new since prior. 5 mm nonobstructing right renal lower pole calculus. Trace fluid in Morison's pouch. Partially distended urinary bladder. Normal left ureteral jet visualized multiple times. Right ureteral jet not visualized which may be due to ureteral obstruction. A ureteral calculus or the ureter not visualized on this study Radiologist: Joey Vo M.D. Study ready at 00:59 and initial results transmitted at 01:42 *This report constitutes a preliminary interpretation only. Non-acute findings felt to be unrelated to the clinical presentation may not be discussed in this report. The study will be interpreted and a final report will be generated by the local Radiologist the following shift. To reach the hospital radiology department call [phone]. If a discrepancy is found between the preliminary and final interpretations of this study, please notify us via our Client Portal at [email or web address], under QA Exams. You can also fax this report with a description of the discrepancy, or include the final report, to our daytime fax number [phone]. If faxing, please indicate the severity of discrepancy using one of the following categories: [ ] 1 - Agree/Informational [ ] 2 - Unlikely to Affect Management [ ] 3 - Possible Eventual Change of Management [ ] 4 - Probable Immediate Change of Management For all other patient related information, please fax us at [phone]. [facility] Patient: JACINTA SIMMONS (Female) Age: 42 MR #: [id number] Status: ER Date: 08/24/18 01:17 Slices: 557 History: rt flanlk pain hx stones Priors: Tech: Julio Meade @ [phone] Exams: CT ABDOMEN & PELVIS With Contrast Contrast: IV Amt: 94 ml optiray Accession Numbers: [id number] Preliminary Findings Only See Final Report For Complete Findings CT ABDOMEN & PELVIS With Contrast: Ultrasound today. Prior CT from 12/17/16 5 mm obstructing calculus in the right proximal ureter. Mild right hydroureteronephrosis and surrounding fat stranding. Nonobstructing bilateral renal calculi. Normal appendix. Wall thickening versus partial distention of the urinary bladder. Correlate also for cystitis. Radiologist: Joey Vo M.D. Study ready at 01:22 and initial results transmitted at 01:51 *This report constitutes a preliminary interpretation only. Non-acute findings felt to be unrelated to the clinical presentation may not be discussed in this report. The study will be interpreted and a final report will be generated by the local Radiologist the following shift. To reach the hospital radiology department call [phone]. If a discrepancy is found between the preliminary and final interpretations of this study, please notify us via our Client Portal at [email or web address], under QA Exams. You can also fax this report with a description of the discrepancy, or include the final report, to our daytime fax number [phone]. If faxing, please indicate the severity of discrepancy us ing one of the following categories: [ ] 1 - Agree/Informational [ ] 2 - Unlikely to Affect Management [ ] 3 - Possible Eventual Change of Management [ ] 4 - Probable Immediate Change of Management For all other patient related information, please fax us at [phone]. Code Status & VTE Plan Code Status Full code VTE Prophylaxis Plan VTE Prophylaxis will be ordered: Yes
[2018-08-24] MEDS: NSS + 20MEQ KCL 20 MEQ/1,000 ML BAG IV SCH ×2 (04:45→15:10)
--- NOTE | 2018-08-24 06:31 | Ultrasound Report ---
EXAMINATION: RENAL ULTRASOUND CLINICAL HISTORY: Right flank pain COMPARISON STUDY: 06/06/2018 FINDINGS: The right kidney measures 11.3 cm. The left kidney measures 13 cm. There is right-sided hy dronephrosis. There is a slight increase in right cortical echogenicity. There is a suspected 5 mm l ower pole right renal calculus. The right ureteral jet was not visualized. IMPRESSION : 1. Right-sided hydronephrosis and nonvisualization of the right renal chest. The findings raise the p ossibility of an obstructing right ureteral calculus which was not visualized on this study. 2. Suspected 5 mm lower pole right renal calculus Electronically signed by: Aj Bravo M.D. 08/24/2018 6:30 AM
--- NOTE | 2018-08-24 06:41 | CT Scan Report ---
CT abd pelvis IV con only CLINICAL HISTORY: Severe right flank pain. COMPARISON STUDY: Ultrasound dated 08/24/2018 TECHNIQUE: The patient was scanned in a dynamic helical fashion during intravenous administration of 94 cc of Optiray 320. A dose lowering technique was utilized adhering to the principles of ALARA. CT DOSE: 302.07 mGy.cm FINDINGS: Lower chest: The heart is normal in size and configuration, without pericardial effusion. The lung ba ses and pleural spaces are clear. Liver: There is 11 mm right lobe hypodensity, likely representing a cyst. There is no ductal dilatati on. Gallbladder: Unremarkable. Spleen: Mildly enlarged measuring 13 cm Pancreas: Unremarkable. Adrenal glands: Unremarkable. Kidneys: There are bilateral renal calculi. There is right-sided hydronephrosis. There is a slightly diminished right-sided nephrogram. There is right-sided perinephric fluid. There is an obstructing 4 mm right UPJ calculus. Bowel: There are no transition zones indicate bowel obstruction. There is no acute diverticulitis. Th e appendix appears normal. Peritoneum: There is no intraperitoneal free air or abdominal ascites. Vasculature: The abdominal aorta is normal in course and caliber. Adenopathy: There are mildly prominent right ileocolic lymph nodes, likely reactive. Pelvic viscera: The bladder, and pelvic viscera are unremarkable. Skeletal structures: No destructive osseous lesions are seen. IMPRESSION: 1. Bilateral nephrolithiasis 2. Obstructing 4 mm proximal right ureteral calculus. 3. No evidence of bowel obstruction. No evidence of free air 4. Normal appendix Electronically signed by: Aj Bravo M.D. 08/24/2018 6:40 AM
--- NOTE | 2018-08-24 08:39 | Urology Consultation ---
Date of Consultation August 24, 2018 Assessment & Plan (1) Calculus of proximal right ureter: A/P 42 yo female with R 5 mm proximal ureteral stone, colic. Findings reviewed with patient. Options include acute intervention endoscopically today, trial of symptom control for the day with possible intervention tomorrow if this fails, outpatient ESWL or outpatient trail of MET. She would prefer to undergo ESWL next week as an outpatient if possible. She recalls her experience with her stent poorly and would prefer to avoid it, and as noted this would likely be placed if acute management is undertaken. Will provide a PO diet, check a KUB for radioopacity of stone today and monitor symptoms. If the patient remains completely pain-free over the course of the day, I think it would be reasonable to discharge her home tonight. If her symptoms are poorly controlled or equivocal, would keep NPO at WA for further discussion of intervention tomorrow. Will tentatively plan on outpatient ESWL next week if possible. Patient vocalizes good understanding of the treatment plan. Thank you for allowing us to participate in this patient's acute care. Please contact our service with any questions or concerns. History of Present Illness Reason for Consultation: R ureteral stone with renal colic. Attending Physician: Mike Shin MD History of Present Illness 42 yo female, known to our service, admitted last night for acute colic on the right hand side from a 5 mm R proximal ureteral stone noted on CT scan. Her inpa tient and outpatient charts are reviewed, imaging studies personally reviewed. She notes acute onset of colicky R hand pain at home, uncontrolled by previous Rx for Toradol and presented to the ER for evaluation. She has undergone ESWL in the past (last Jun 2018) with success, had a stent previously by Dr. Ramos, poorly tolerated. She denies stone passage but her pain has abated, dosed with Dilaudid last night. She has a longstanding history of stones, starting ~2006, more issues since 2017. The current stone was noted on imaging previously and prior plan was for elective ESWL in Sep 2018. Several small L renal stones are noted. She has not yet completed her planned 24 hour urine study. consult is requested to assist with the patient's acute care. Allergies Allergy/AdvReac Type Severity Reaction Status Date / Time Pomegranate Allergy Intermediate HIVES Uncoded 08/23/18 23:35 Home Medications Home Medications Medication Instructions Recorded Confirmed Type Zyrtec 10 mg PO QAM 06/11/18 08/23/18 History pantoprazole [Protonix] 40 mg PO QAM 06/11/18 08/23/18 History norethindrone-e.estradiol-iron 1 tab PO DAILY 08/23/18 08/23/18 History [ ()] Patient History Medical History GERD (gastroesophageal reflux disease) History of IBS Kidney stones Migraine Surgical History History of section X 3 History of cystoscopy STENT INSERTION History of laparoscopy ECTOPTIC History of lithotripsy History of myringotomy History of tooth extraction Family History Mother Family history of diabetes mellitus Social History Preferred Language: Palauan Communication Ability: Effective Heel Buffer Required: No Beliefs That Will Affect Care: None Current Living Situation: Spouse Other Information That Helps Us Care for You: No Feels Safe at Home: Yes Safety Concerns: Feels Safe At This Time Smoking Status: Never smoker Second Hand Exposure: No Hx Alcohol Use: No Hx Substance Use: No Review of Systems Constitutional: no fever, no chills and no sweats Eyes: no blind spots and no diplopia Ear, Nose, Mouth, Throat: no ear pain and no ear trauma Respiratory: no hemoptysis Cardiovascular: no chest pain Gastrointestinal: + abdominal pain; no coffee ground emesis Genitourinary: as per Subjective / HPI Musculoskeletal: + back pain; no muscle weakness Integumentary: no acne and no boil Neurologic: no paralysis and no numbness Psychiatric: no hopelessness Endocrine: no deepening of the voice Hematologic / Lymphatic: no easy bleeding Allergy / Immunological: no lip swelling Physical Exam Constitutional: WD/WN, vitals as above Eyes: eyes not dysmorphic ENMT: Ears: no external ear abnormality Neck: trachea midline; no anterior neck swelling Respiratory: no respiratory distress and does not use accessory muscles Cardiovascular: Vessels: radial pulses present Gastrointestinal (Abdomen): Inspection/Auscultation: abdomen not distended Percussion/Palpation: abdomen soft; abdomen nontender Musculoskeletal: Head/Neck/Chest: normocephalic and neck supple Skin: normal turgor Neurologic: awake; not obtunded Psychiatric: Orientation: oriented x 3 Lymphatic: no lymphadenopathy Results & Data Vital Signs (Past 12 Hours) Vital Signs Temp Pulse Pulse Pulse Resp BP BP 08/24/18 07:47 36.9 C 64 14 120/80 08/24/18 04:45 154/99 H 08/24/18 04:16 37 C 66 16 190/102 H 08/24/18 03:47 71 16 146/80 H 08/24/18 02:11 74 18 152/81 H 08/24/18 01:25 75 18 180/86 H 08/23/18 23:21 36.8 C 64 18 222/97 H Pulse Ox 08/24/18 07:47 97 08/24/18 04:45 08/24/18 04:16 100 08/24/18 03:47 99 08/24/18 02:11 98 08/24/18 01:25 97 08/23/18 23:21 100 Laboratory Results Laboratory Results - last 48 hr 08/23/18 08/23/18 08/24/18 23:42 23:42 00:34 WBC 7.35 RBC 4.93 Hgb 15.5 Hct 43.7 MCV 88.6 MCH 31.4 MCHC 35.5 RDW Std Deviation 40.7 RDW Coeff of Charley 12.7 Plt Count 216 MPV 10.8 H Sodium 140 Potassium 4.5 Chloride 109 H Carbon Dioxide 26 Anion Gap 5.0 BUN 14 Creatinine 0.97 Est Cr Clr Drug Dosing 73.5 Est GFR ( Amer) 83.5 Est GFR (Non-Af Amer) 72.0 BUN/Creatinine Ratio 14.7 Glucose 133 H Calcium 9.3 Specimen Hemolysis Urine Color Yellow Urine Appearance Clear Urine pH 7.0 Ur Specific [place] 1.020 Urine Protein 1+ H POC Urine Protein Urine Glucose (UA) Negative POC Ur Glucose (UA) Urine Ketones Negative POC Urine Ketones Urine Blood 2+ H POC Urine Blood Urine Nitrite Negative POC Urine Nitrite Urine Bilirubin Negative POC Urine Bilirubin Urine Urobilinogen Negative POC Urine Urobilinogen Ur Leukocyte Esterase Negative POC U Leukocyte Esteras Urine WBC (Auto) 1-5 Urine RBC (Auto) 5-10 H U Hyaline Cast (Auto) 1-5 U Epithel Cells (Auto) 10-20 H Urine Bacteria (Auto) Negative POC Ur Test 08/24/18 08/24/18 00:34 00:34 WBC RBC Hgb Hct MCV MCH MCHC RDW Std Deviation RDW Coeff of Charley Plt Count MPV Sodium Potassium Chloride Carbon Dioxide Anion Gap BUN Creatinine Est Cr Clr Drug Dosing Est GFR ( Amer) Est GFR (Non-Af Amer) BUN/Creatinine Ratio Glucose Calcium Specimen Hemolysis Urine Color Urine Appearance Urine pH Ur Specific [place] Urine Protein POC Urine Protein Trace H Urine Glucose (UA) POC Ur Glucose (UA) Normal Urine Ketones POC Urine Ketones Negative Urine Blood POC Urine Blood 250 H Urine Nitrite POC Urine Nitrite Negative Urine Bilirubin POC Urine Bilirubin Negative Urine Urobilinogen POC Urine Urobilinogen Normal Ur Leukocyte Esterase POC U Leukocyte Esteras Negative Urine WBC (Auto) Urine RBC (Auto) U Hyaline Cast (Auto) U Epithel Cells (Auto) Urine Bacteria (Auto) POC Ur Test NEG
[2018-08-24] MEDS ORDERED: OXYCODONE/ACETAMINOPHEN 5mg/325mg TAB PO PRN (08:51)
[2018-08-24] MEDS ORDERED: KETOROLAC TROMETHAMINE 10 MG TABLET PO PRN (08:51)
[2018-08-24] MEDS ORDERED: OXYCODONE/ACETAMINOPHEN 10-325 TAB PO PRN (08:52)
[2018-08-24] MEDS ORDERED: FAMOTIDINE 20 MG in SYRINGE 3 ML IV SCH (09:00)
[2018-08-24] MEDS ORDERED: DOCUSATE SODIUM 100 MG CAP PO SCH (09:00)
--- NOTE | 2018-08-24 09:08 | XRay Report ---
XR KUB/Abdomen 1 view CLINICAL HISTORY: stone disease NEPHROLITHIASIS COMPARISON STUDY: CT scan dated 08/24/2018 FINDINGS: There is bilateral nephrolithiasis. There is no pathologic bowel dilatation. There are 2 pr oximal right ureteral calculi measuring 4 mm] in aggregate. IMPRESSION: 1. Bilateral nephrolithiasis 2. There are 2 tangential proximal right ureteral calculi located just inferior to the right L3 trans verse process. These measure 4 mm in aggregate. Electronically signed by: Aj Bravo M.D. 08/24/2018 9:07 AM
[2018-08-24] MEDS ORDERED: ACETAMINOPHEN 325 MG TAB PO PRN (13:29)
--- NOTE | 2018-08-24 14:02 | XRay Report ---
XR chest 2V routine CLINICAL HISTORY: preop COMPARISON STUDY: 06/06/2018 FINDINGS: The cardiac and mediastinal contours are normal. There is no evidence of focal pulmonary co nsolidation. There is no evidence of failure. No pleural effusions are visualized.[ IMPRESSION: No active disease in the chest. Electronically signed by: Aj Bravo M.D. 08/24/2018 2:01 PM
--- NOTE | 2018-08-24 15:22 | Discharge Summary ---
Date of Service August 24, 2018 Admission HPI Per Admitting Provider The patient is a 42-year-old female with a past medical history including kidney stones, with most recent stone and lithotripsy [address] Guerrero. She reports the onset of pain similar to previous kidney stones. She has also had some nausea and vomiting. She denies any fevers or chills. Principal Diagnosis Right kidney stone Discharge Exam Constitutional WD/WN, vitals as above Eyes eyes not dysmorphic ENMT Ears: no external ear abnormality Neck trachea midline; no anterior neck swelling Respiratory no respiratory distress and does not use accessory muscles Cardiovascular Vessels: radial pulses present Gastrointestinal (Abdomen) Inspection/Auscultation: abdomen not distended Percussion/Palpation: abdomen soft; abdomen nontender Musculoskeletal Head/Neck/Chest: normocephalic and neck supple Skin normal turgor Neurologic awake; not obtunded Psychiatric Orientation: oriented x 3 Lymphatic no lymphadenopathy Discharge Data Allergies Allergy/AdvReac Type Severity Reaction Status Date / Time Pomegranate Allergy Intermediate HIVES Uncoded 08/23/18 23:35 Consultations 08/24/18 03:00 ED Decision to Admit Stat 08/24/18 04:08 Consult Case Management - Discharge Planning Routine Consult Urology Routine Ordered Studies 08/24/18 00:00 US renal/blad retro comp Urgent 08/24/18 00:56 CT abd pelvis IV con only Urgent Hospital Course (1) Calculus of proximal right ureter: 5 mm calculus of proximal right ureter/associated mild right hydroureteronephrosis- Seen by Dr. Shin who felt patient could wait until next week for ESWL. - Patient desired discharge and had used minimal pain medications: Discharged on Flomax and pain control with outpatient follow up with urology. (2) Hydronephrosis of right kidney: See above (3) GERD (gastroesophageal reflux disease): Change p.o. pantoprazole to famotidine 20 mg IV every 12 hours (4) Allergic rhinitis: Hold Zyrtec Total Time Total Time Spent Total Time Spent (In Minutes): 20 Total Time Includes: Examination of the Patient and Communication With Other Providers Discharge Plan Discharge Items Patient Disposition: Home - Self-Care Reason For Visit: RIGHT 5MM PROXIMAL URETER OBSTRUCTING STONE, MILD Discharge Diagnosis: Right kidney stone Condition: Good Discharge Goals: Decrease discomfort Activity: Resume your previous activity Non-emergency contact: Primary Care Provider and Urologist Call non-emergency contact if: your symptoms worsen, your pain is not controlled and your temperature is above 100.5 Follow-up/Referrals: Hugh Shin MD [Physician] - Anton Altamirano MD [Primary Care Provider] - Diet: Regular Addtl Provider Instructions: Please take take the Flomax (tamsulosin) and pain medication as needed. Follow up with Dr. Shin in his office. Prescriptions: New tamsulosin 0.4 mg capsule 0.4 mg PO HS Qty: 14 RF: 0 ketorolac 10 mg tablet 10 mg PO Q8H PRN (Reason: pain) 3 Days Qty: 15 RF: 0 oxycodone-acetaminophen [Percocet] 2.5-325 mg tablet 1 tab PO Q8H PRN (Reason: pain) Qty: 10 RF: 0 Continued pantoprazole [Protonix] 40 mg Tablet,Delayed Release (Dr/Ec) 40 mg PO QAM RF: 0 Zyrtec 10 mg Capsule 10 mg PO QAM RF: 0 Junel FE 1.5/30 (28) 1.5 mg-30 mcg (21)/75 mg (7) tablet 1 tab PO DAILY RF: 0 Stand-Alone Forms: [facility] Orders: Discharge Order (Routine); Ordered 08/24/18 Ordered By: Mike Shin Admission Data Admit Date/Time: 08/24/18 03:19 Attending Provider: Mike Shin Admit Provider: Joe Boothe Primary Care Provider: Anton Altamirano Other Providers: Lencho Guerrero ; Mike Shin ; Joe Boothe Service: Medical
== END 2018-08-24 16:09 | disposition home or self-care (01) | DRG 694 ==
LOC: ED 23:19 → 3N 08-24 03:19 → SUATTDRO 08-24 03:19 → 3N 08-24 03:47

== ENCOUNTER 2018-08-25 14:58 | Observation (INO) ==
[2018-08-25] MEDS ORDERED: SODIUM CHLORIDE 0.9% 1000ML 1,000 ML IV ONE (15:15)
[2018-08-25] MEDS ORDERED: HYDROmorphone INJ 0.5 MG/0.5 ML SYR IV STA ×2 (15:15→16:15)
[2018-08-25] MEDS ORDERED: ONDANSETRON INJ 2 MG/ML 2 ML VIAL IV STA (15:15)
[2018-08-25] MEDS ORDERED: KETOROLAC TROMETHAMINE 15 MG/ML VIAL IV STA (15:15)
--- NOTE | 2018-08-25 15:34 | Emergency Department Note ---
History of Present Illness General Chief complaint: Kidney Stone Stated complaint: KIDNEY STONE Source: patient Mode of arrival: ambulatory Limitations: no limitations History of Present Illness Maximum Pain Intensity: 10 This patient is a 42-year-old female who presents to the emergency department complaining of right flank pain. The patient states that she was here 2 days ago and admitted for a kidney stone. She states that she was doing well in the hospital and decided to go home to have lithotripsy this Sunday. She states that she did well for the first day that she was home, but today has not been able to keep anything down including her medications. She was not prescribed anything for nausea. She has taken her Flomax, Toradol and Percocet. She states that her pain is located in the right flank with radiation into the abdomen. She rates her current discomfort a 10/10. She states that nothing makes the pain better or worse. She denies any fevers, but does states she has been having some hot flashes but feels this is associated with vomiting. Home Medications Home Medications Medication Instructions Recorded Confirmed Type Zyrtec 10 mg PO QAM 06/11/18 08/25/18 History pantoprazole [Protonix] 40 mg PO QAM 06/11/18 08/25/18 History Junel FE .08/22 (28) 1 tab PO DAILY 08/23/18 08/25/18 History ketorolac 10 mg PO Q8H PRN 3 Days #15 tab 08/24/18 08/25/18 Rx oxycodone-acetaminophen [Percocet] 1 tab PO Q8H PRN #10 tab 08/24/18 08/25/18 Rx tamsulosin 0.4 mg PO HS #14 cap 08/24/18 08/25/18 Rx Allergies Allergy/AdvReac Type Severity Reaction Status Date / Time Pomegranate Allergy Intermediate HIVES Uncoded 08/23/18 23:35 Past Med/Surg History Medical History GERD (gastroesophageal reflux disease) History of IBS Kidney stones Migraine Surgical History History of section X 3 History of cystoscopy STENT INSERTION History of laparoscopy ECTOPTIC History of lithotripsy History of myringotomy History of tooth extraction Family History Mother Family history of diabetes mellitus Social History Preferred Language: Cuban Communication Ability: Effective 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 Beliefs That Will Affect Care: None Current Living Situation: Spouse Other Information That Helps Us Care for You: No Feels Safe at Home: Yes Safety Concerns: Feels Safe At This Time Smoking Status: Never smoker Do You Dip or Chew Tobacco: No Second Hand Exposure: No Tobacco Cessation Education Requested by Patient: No Hx Alcohol Use: No Hx Substance Use: No Review of Systems A total of 10 systems reviewed and were otherwise negative Physical Exam Vital Signs Vital Signs - 24 hr 08/25/18 15:01 08/25/18 16:19 08/25/18 16:37 Temperature 36.8 C Temperature Source Oral Sepsis Recent Fever Within 48 Hours No Sepsis Action Taken by Nursing No Action Required Pulse Rate 81 Pulse Rate [Finger] 61 72 Respiratory Rate 18 17 16 Respiratory Effort / Characteristics Non-Labored Spontaneous Non-Labored Non-Labored Respiratory Depth Normal Normal Normal Respiratory Pattern Regular Regular Regular Blood Pressure 170/93 H Blood Pressure [Right Arm] 162/118 H Blood Pressure Mean 118 Blood Pressure Mean [Right Arm] 132 Blood Pressure Position Sitting Blood Pressure Position [Right Arm] Sitting Pulse Oximetry 100 99 95 Oxygen Delivery Method Room Air Room Air Room Air 08/25/18 17:24 Temperature Temperature Source Sepsis Recent Fever Within 48 Hours Sepsis Action Taken by Nursing Pulse Rate Pulse Rate [Finger] 66 Respiratory Rate 16 Respiratory Effort / Characteristics Non-Labored Respiratory Depth Normal Respiratory Pattern Regular Blood Pressure Blood Pressure [Right Arm] 151/78 H Blood Pressure Mean Blood Pressure Mean [Right Arm] 102 Blood Pressure Position Blood Pressure Position [Right Arm] Lying Pulse Oximetry 97 Oxygen Delivery Method Room Air VITALS: Vitals are noted on the nurse's note and reviewed by myself. Vital signs stable. GENERAL: This is a 42-year-old female, sitting up in bed and holding her right flank, appears to be in pain. SKIN: The skin was without rashes. EYES: Pupils equal round and reactive to light and accommodation. MOUTH: Mucous membranes moist. NECK: Supple without nuchal rigidity. HEART: Regular rate and rhythm without murmurs gallops or rubs. LUNGS: Clear to auscultation bilaterally without wheezes, rales or rhonchi. ABDOMEN: Positive bowel sounds x 4. Soft, nondistended. Tenderness to palpation in the right mid and lower abdomen. MUSCULOSKELETAL: Right CVA tenderness. EXTREMITIES: No peripheral edema. NEURO: Patient was alert and oriented to person place and time. Course Reevaluation(s) Reevaluation #1: Patient was reevaluated after receiving initial doses of pain medication and states that she is not feeling any better. An additional dose of Dilaudid was ordered. Reevaluation #2: The patient was reevaluated and is drowsy but feeling somewhat better. The patient does not feel she will be able to be discharged home given the pain she has been having. Consultations Consultation #1: [facility] hospitalists -paged for admission Administered Medications Parenteral Electrolytes (Normosol-R) 1,000 mls @ 80 mls/hr IV .[id number] Stop: 09/24/18 19:25 Last Admin: 08/25/18 20:38 Dose: 80 mls/hr Documented by: [id number] Ondansetron HCl (Zofran) 4 mg IV Q4H PRN PRN Reason: Nausea Stop: 09/24/18 19:25 Last Admin: 08/25/18 20:38 Dose: 4 mg Documented by: [id number] Tamsulosin HCl (Flomax) 0.4 mg PO HS DHIRAJ Stop: 09/24/18 20:59 Last Admin: 08/25/18 21:49 Dose: 0.4 mg Documented by: [id number] Discontinued Medications Hydromorphone HCl (Dilaudid) 0.5 mg IV NOW STA Stop: 08/25/18 15:16 Last Admin: 08/25/18 15:20 Dose: 0.5 mg Documented by: [id number] Hydromorphone HCl (Dilaudid) 0.5 mg IV NOW STA Stop: 08/25/18 16:16 Last Admin: 08/25/18 16:20 Dose: 0.5 mg Documented by: [id number] Sodium Chloride (Nss 1000ml) 1,000 mls @ 999 mls/hr IV .Q1H1M ONE Stop: 08/25/18 16:15 Last Infusion: 08/25/18 16:38 Dose: 0 mls/hr Documented by: [id number] Admin: 08/25/18 15:23 Dose: 999 mls/hr Documented by: [id number] Ketorolac Tromethamine (Toradol) 15 mg IV NOW STA Stop: 08/25/18 15:16 Last Admin: 08/25/18 15:20 Dose: 15 mg Documented by: Ondansetron HCl (Zofran) 4 mg IV NOW STA Stop: 08/25/18 15:16 Last Admin: 08/25/18 15:20 Dose: 4 mg Documented by: Medical Decision Making Differential Diagnosis Differential diagnosis includes kidney stone, UTI, acute kidney injury, among others. Medical Records Attestation: I reviewed the patient's medical records. Home Medications Current Medication List: was personally reviewed by me Laboratory Data Attestation: I reviewed the patient's lab results. Result diagrams: 08/25/18 15:23 08/25/18 15:23 Lab Results 08/25/18 08/25/18 08/25/18 Range/Units 15:23 15:23 16:54 WBC 10.47 (4.8-10.8) K/uL RBC 4.72 (4.2-5.4) M/uL Hgb 14.5 (12.0-16.0) g/dL Hct 41.2 (37-47) % MCV 87.3 (80-100) fL MCH 30.7 (25-34) pg MCHC 35.2 (32-36) g/dL RDW Std Deviation 40.1 (36.4-46.3) fL RDW Coeff of Charley 12.4 (11.5-14.5) % Plt Count 209 (130-400) K/uL MPV 9.8 (7.4-10.4) fL Immature Gran % (Auto) 0.3 % Neut % (Auto) 86.7 % Lymph % (Auto) 6.9 % [place] % (Auto) 5.8 % Eos % (Auto) 0.1 % Baso % (Auto) 0.2 % Immature Gran # (Auto) 0.03 H (0.00-0.02) K/uL Neut # (Auto) 9.08 H (1.4-6.5) K/uL Lymph # (Auto) 0.72 L (1.2-3.4) K/uL [place] # (Auto) 0.61 H (0.11-0.59) K/uL Eos # (Auto) 0.01 (0-0.5) K/uL Baso # (Auto) 0.02 (0-0.2) K/uL Sodium 140 (136-145) mmol/L Potassium 3.2 L D (3.5-5.1) mmol/L Chloride 108 H (98-107) mmol/L Carbon Dioxide 24 (21-32) mmol/L Anion Gap 8.0 (3-11) BUN 12 (7-18) mg/dl Creatinine 0.92 (0.6-1.2) mg/dl Est Cr Clr Drug Dosing 77.5 ml/min Est GFR ( Amer) 89.0 Est GFR (Non-Af Amer) 76.8 BUN/Creatinine Ratio 13.0 (10-20) Glucose 90 (70-99) mg/dl Calcium 8.3 L (8.5-10.1) mg/dl Urine Color Yellow Urine Appearance Clear (Clear) Urine pH 7.0 (4.5-7.5) Ur Specific [place] 1.016 (1.000-1.030) Urine Protein Negative (Negative) Urine Glucose (UA) Negative (Negative) Urine Ketones 1+ H (Negative) Urine Blood 2+ H (Negative) Urine Nitrite Negative (Negative) Urine Bilirubin Negative (Negative) Urine Urobilinogen Negative (Negative) Ur Leukocyte Esterase Negative (Negative) Urine WBC (Auto) 1-5 (0-5) /hpf Urine RBC (Auto) 10-30 H (0-4) /hpf U Hyaline Cast (Auto) 1-5 (0-5) /lpf U Epithel Cells (Auto) 5-10 H (0-5) /lpf Urine Bacteria (Auto) Negative (Negative) Imaging Data Attestation: I personally reviewed and interpreted this imaging study as follows: Radiologist's Impression: KUB CLINICAL HISTORY: Right ureteral stone. FINDINGS: An AP, portable, supine abdominal radiograph is compared to study dated 08/24/2018 and correlated with abdominal CT dated 09/12/2018. There is a nonobstructed abdominal bowel gas pattern. There is unchanged position of a 5 mm obstructing calculus in the mid right ureter seen at the level of L4. Additional punctate calculi project over the lower pole of the right kidney. No left renal calculi are clearly seen. The bony structures are intact. IMPRESSION: 1. There is unchanged position of a 5 mm right ureteral calculus as compared to yesterday. 2. Additional tiny calculi project over the right lower pole. Blood Pressure Blood Pressure Findings: Elevated blood pressure Blood Pressure Disposition: further management by hospitalist MDM Narrative The patient is a 42-year-old female who presents today complaining of uncontrolled pain from a right-sided kidney stone. Labs revealed no le ukocytosis, anemia or concerning electrolyte abnormalities. Kidney function within normal limits. Urinalysis was not suggestive of infection. KUB shows no change in position of the right ureteral stone. Patient required multiple doses of IV pain medication to control her symptoms here. She has been trying oral medication at home without relief. Patient was offered discharge versus admission and prefers to be admitted for definitive treatment. [facility]. Impression & Plan Right ureteral calculus Discharge Plan Visit Data *Final* Discharge Date/Time: 08/25/18 18:51 Chief Complaint: Kidney Stone Stated Complaint: KIDNEY STONE ED Provider: Tre So ED Midlevel Provider: Luisa Magdaleno Discharge Problem: Right ureteral calculus Patient Disposition: Admitted As Inpatient Discharge Instructions Interventions: ED Discharge Assessment Last Done: 08/25/18 18:51
[2018-08-25 16:14] LABS: Basophils # (auto) 0.02 K/uL (0-0.2); Basophils % (auto) 0.2 %; Eosinophils # (auto) 0.01 K/uL (0-0.5); Eosinophils % (auto) 0.1 %; Hematocrit (blood only) 41.2 % (37-47); Hemoglobin 14.5 g/dL (12.0-16.0); Immature Granulocytes # (auto) 0.03 K/uL (0.00-0.02); Immature Granulocytes % (auto) 0.3 %; Lymphocytes # (auto) 0.72 K/uL (1.2-3.4); Lymphocytes % (auto) 6.9 %; Mean Corpuscular Hgb Conc 35.2 g/dL (32-36); Mean Corpuscular Volume 87.3 fL (80-100); Mean Platelet Volume 9.8 fL (7.4-10.4); Monocytes # (auto) 0.61 K/uL (0.11-0.59); Monocytes % (auto) 5.8 %; Neutrophils # (auto) 9.08 K/uL (1.4-6.5); Neutrophils % (auto) 86.7 %; Platelet Count 209 K/uL (130-400); RDW Coefficient of Variation 12.4 % (11.5-14.5); RDW Standard Deviation 40.1 fL (36.4-46.3); Red Blood Count 4.72 M/uL (4.2-5.4); White Blood Count 10.47 K/uL (4.8-10.8)
[2018-08-25 16:35] LABS: Calcium 8.3 mg/dl (8.5-10.1); Creatinine Clr Calc Pharmacy 77.5 ml/min; Est GFR (Non-African American) 76.8; Potassium 3.2 mmol/L (3.5-5.1)
--- NOTE | 2018-08-25 16:43 | XRay Report ---
KUB CLINICAL HISTORY: Right ureteral stone. FINDINGS: An AP, portable, supine abdominal radiograph is compared to study dated 08/24/2018 and correl ated with abdominal CT dated 09/12/2018. There is a nonobstructed abdominal bowel gas pattern. There i s unchanged position of a 5 mm obstructing calculus in the mid right ureter seen at the level of L4. Additional punctate calculi project over the lower pole of the right kidney. No left renal calculi ar e clearly seen. The bony structures are intact. IMPRESSION: 1. There is unchanged position of a 5 mm right ureteral calculus as compared to yesterday. 2. Additional tiny calculi project over the right lower pole. Electronically signed by: Stephen Lopez M.D. 08/25/2018 4:41 PM
[2018-08-25 17:10] LABS: Appearance Urine Clear (Clear); Bacteria Urine Automated Negative (Negative); Bilirubin Urine Negative (Negative); Blood Urine 2+ (Negative); Color Urine Yellow; Glucose Urine UA Negative (Negative); Ketones Urine 1+ (Negative); Leukocyte Esterase Urine Negative (Negative); Nitrite Urine Negative (Negative); Protein Urine Negative (Negative); Specific Gravity Urine 1.016 (1.000-1.030); Urobilinogen Urine Negative (Negative)
--- NOTE | 2018-08-25 18:30 | History & Physical Report ---
Date of Service August 25, 2018 Assessment & Plan (1) Kidney stones: 5 mm right ureteral calculus. Discharged just yesterday after only needing acetaminophen all day for pain control. - Pain control PRN - Zofran PRN - Continue tamsulosin - Hold abx as her urine shows no signs of infection. - Urology consult - Prior admission she did not want a stent, but is reconsidering given the continuing pain (2) GERD (gastroesophageal reflux disease): Continue PPI (3) Migraine: No active headaches. - Treat with acetaminophen or ketorolac PRN (4) DVT prophylaxis: SCDs - Low DVT risk per admission calculator History of Present Illness Primary Care Provider: Anton Altamirano MD 42-year-old female with a history of GERD and recurrent kidney stones who presents with intractable pain due to a kidney stone. She was actually discharged yesterday after requiring only Tylenol throughout the day for her right-sided kidney stone pain. She reports that she had minimal pain overnight, but this morning had intractable pain that was not resolved with the Toradol or Percocet with which she was discharged. She also reports that she had multiple episodes of nonbloody nonbilious emesis, and was therefore unsure if she could take further oral analgesic medication. She denies any fevers or chills, dysuria, shortness of breath, lightheadedness, dizziness, or other concerning findings. After 2 doses of Dilaudid and 1 of ketorolac, she reports that her pain is now a dull ache and tolerable. Allergies Allergy/AdvReac Type Severity Reaction Status Date / Time Pomegranate Allergy Intermediate HIVES Uncoded 08/23/18 23:35 Home Medications Home Medications Medication Instructions Recorded Confirmed Type Zyrtec 10 mg PO QAM 06/11/18 08/25/18 History pantoprazole [Protonix] 40 mg PO QAM 06/11/18 08/25/18 History Junel FE .5 (28) 1 tab PO DAILY 08/23/18 08/25/18 History ketorolac 10 mg PO Q8H PRN 3 Days #15 tab 08/24/18 08/25/18 Rx oxycodone-acetaminophen [Percocet] 1 tab PO Q8H PRN #10 tab 08/24/18 08/25/18 Rx tamsulosin 0.4 mg PO HS #14 cap 08/24/18 08/25/18 Rx Past Med/Surg History Medical History GERD (gastroesophageal reflux disease) History of IBS Kidney stones Migraine Surgical History History of section X 3 History of cystoscopy STENT INSERTION History of laparoscopy ECTOPTIC History of lithotripsy History of myringotomy History of tooth extraction Family History Mother Family history of diabetes mellitus Social History Preferred Language: Montenegrin Communication Ability: Effective Beliefs That Will Affect Care: None Current Living Situation: Spouse Feels Safe at Home: Yes Smoking Status: Never smoker Second Hand Exposure: No Hx Alcohol Use: No Hx Substance Use: No Review of Systems Review of Systems: All systems reviewed & are unremarkable except as noted in HPI & below Physical Exam Constitutional: WD/WN, vitals as above Eyes: EOM intact bilaterally; no conjunctival abnormality ENMT: external ear and nose normal, oropharynx normal Neck: trachea midline, no thyromegaly normal visual inspection Respiratory: normal respiratory effort, lungs clear to auscultation no respiratory distress Cardiovascular: RRR, no murmur, no edema Gastrointestinal (Abdomen): Inspection/Auscultation: abdomen normal to inspection; abdomen not distended Musculoskeletal: no cyanosis or clubbing, extremities motor strength 5/5 Skin: no rashes, warm and dry Neurologic: moves all extremities and awake Psychiatric: Orientation: alert, oriented to person and cooperative Results & Data Vital Signs (Past 12 Hours) Vital Signs Temp Pulse Pulse Resp BP BP Pulse Ox 08/25/18 17:24 66 16 151/78 H 97 08/25/18 16:37 72 16 95 08/25/18 16:19 61 17 162/118 H 99 08/25/18 15:01 36.8 C 81 18 170/93 H 100
[2018-08-25] MEDS ORDERED: HYDROmorphone INJ 0.5 MG/0.5 ML SYR IV PRN (19:26)
[2018-08-25] MEDS: ONDANSETRON INJ 2 MG/ML 2 ML VIAL IV PRN (20:38)
[2018-08-25] MEDS: NORMOSOL-R 1,000 ML IV SCH (20:38)
[2018-08-25] MEDS: TAMSULOSIN HCL 0.4 MG CAP PO SCH (21:49)
[2018-08-26] MEDS: PANTOprazole 40 MG TAB PO SCH (05:45)
[2018-08-26 06:54] LABS: Hematocrit (blood only) 36.6 % (37-47); Hemoglobin 12.8 g/dL (12.0-16.0); Mean Corpuscular Volume 87.4 fL (80-100); Mean Platelet Volume 9.9 fL (7.4-10.4); Platelet Count 206 K/uL (130-400); RDW Coefficient of Variation 12.5 % (11.5-14.5); RDW Standard Deviation 39.9 fL (36.4-46.3); Red Blood Count 4.19 M/uL (4.2-5.4); White Blood Count 5.15 K/uL (4.8-10.8)
[2018-08-26 07:19] LABS: BUN Creatinine Ratio 13.4 (10-20); Calcium 8.2 mg/dl (8.5-10.1); Creatinine Clr Calc Pharmacy 101.8 ml/min; Est GFR (African American) 123.9; Est GFR (Non-African American) 106.9; Potassium 3.1 mmol/L (3.5-5.1)
[2018-08-26] MEDS: CETIRIZINE HCL 10 MG TABLET PO SCH (07:31)
[2018-08-26] MEDS: NORMOSOL-R 1,000 ML IV SCH (07:37)
[2018-08-26] MEDS ORDERED: POTASSIUM CHLORIDE 20 MEQ TABCR PO STA (08:56)
--- NOTE | 2018-08-26 09:05 | Urology Progress Note ---
Date of Service August 26, 2018 Assessment & Plan (1) Right ureteral calculus: 42 YO female with persistent renal colic, right ureteral stone. Symptoms uncontrolled, required readmission. Discussed treatment options - patient is interested in ureteral stent placement today. Patient added to OR schedule this afternoon for cystoscopy, right ureteral stent placement. Procedure details, surgical risk, anticipated recovery reviewed. All patient questions answered. Remains NPO. 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 Barring any unforeseen complications, patient likely stable for discharge home today post-procedure with supportive medication: Tamsulosin, Pyridium, and Cipro 500mg BID x 3d. Pain medication PRN. Outpatient URO follow up has been arranged. Thank you for allowing us to participate in Ms. Restrepo's inpatient care. Please contact our service with additional questions/concerns. (2) Hydronephrosis of right kidney: (3) Ureterolithiasis: (4) Intractable back pain: Subjective 42 YO female with persistent renal colic, right ureteral stone. Patient was discharged from hospital, readmitted last evening due to uncontrolled symptoms including pain and vomiting. Proximal right ureteral stone(s) persisting on KUB. Patient reports that her symptoms are somewhat controlled this AM with supportive medication. Pain and nausea persisting. Continues to void spontaneously without bother. No fevers. Review of Systems Review of Systems: All systems reviewed & are unremarkable except as noted in HPI & below Physical Exam Physical Exam: WN/WD NAD. Neck: visual inspection normal. No JVD, no edema. Resp effort normal, no accessory muscle use. Abdomen soft +RLQ tenderness. Bladder non-distended. A&O x3, appropriate affect. Results & Data Vital Signs (Past 12 Hours) Vital Signs Temp Pulse Resp BP Pulse Ox 08/26/18 07:53 36.8 C 67 18 150/88 H 96 08/25/18 23:06 37.0 C 70 16 143/75 H 100
[2018-08-26] MEDS: POTASSIUM CHLORIDE 20 MEQ in NORMOSOL-R 1,000 ML IV SCH (09:42)
[2018-08-26] MEDS: KETOROLAC 30 MG/ML VIAL IV PRN ×2 (09:50→18:22)
[2018-08-26] MEDS: ONDANSETRON INJ 2 MG/ML 2 ML VIAL IV PRN (09:51)
[2018-08-26] MEDS ORDERED: CIPROFLOXACIN 400 MG/200 ML BAG IV SCH (10:00)
[2018-08-26] MEDS ORDERED: DEXAMETHASONE SOD INJ 4 MG/ML VIAL ONE (13:10)
[2018-08-26] MEDS ORDERED: LIDOCAINE HCL 2% 2 ML VIAL/AMP(20MG/ML) INFIL ONE (13:10)
[2018-08-26] MEDS ORDERED: ONDANSETRON INJ 2 MG/ML 2 ML VIAL ONE (13:10)
[2018-08-26] MEDS ORDERED: PROPOFOL IV EMULSION 10 MG/ML 20 ML VIAL IV ONE ×2 (13:10→14:12)
[2018-08-26] MEDS ORDERED: fentaNYL citrate 100 MCG/2 ML VIAL ONE (13:11)
[2018-08-26] MEDS ORDERED: MIDAZOLAM HCL 1 MG/ML 2ML VIAL ONE (13:11)
[2018-08-26] MEDS ORDERED: IOTHALAMATE MEGLUMINE II 17.2% 250 ML VIAL ONE (13:12)
--- NOTE | 2018-08-26 13:16 | Anesthesiology Consultation ---
Date of Service August 26, 2018 Assessment & Plan (1) Encounter for pre-operative examination: Chart Review Chart Review: Acceptable Risk for Surgery and Patient NOT seen in Pre Admission Testing Consults Requested none ASA ASA2 Proposed Anesthesia Anesthesia Type: MAC Risk / Benefits Reviewed With: PT / POA / Parent / Guardian, Accepts Plan and Informed Consent Obtained History Surgery Operation Date: 08/26/18 15:25 Proposed Procedures p Cystoscopy, Right Ureteral Stent Placement - Jake Deutsch II, DO Height/Weight Height: 5 ft 7 in Weight: 70.4 kg Allergies Allergy/AdvReac Type Severity Reaction Status Date / Time Pomegranate Allergy Intermediate HIVES Uncoded 08/23/18 23:35 Medications Home Medications Medication Instructions Recorded Confirmed Last Taken Zyrtec 10 mg PO QAM 06/11/18 08/25/18 06/13/18 pantoprazole [Protonix] 40 mg PO QAM 06/11/18 08/25/18 08/23/18 FE () 1 tab PO DAILY 08/23/18 08/25/18 08/23/18 ketorolac 10 mg PO Q8H PRN 3 Days #15 tab 08/24/18 08/25/18 Unknown oxycodone-acetaminophen [Percocet] 1 tab PO Q8H PRN #10 tab 08/24/18 08/25/18 Unknown tamsulosin 0.4 mg PO HS #14 cap 08/24/18 08/25/18 Unknown Active Medications Generic Name Dose Route Start Last Admin Trade Name Freq PRN Reason Stop Dose Admin Cetirizine HCl 10 mg 08/26/18 09:00 08/26/18 07:31 Zyrtec PO 09/25/18 08:59 10 mg QAM DHIRAJ Administration Potassium Chloride 20 meq/ 1,010 mls @ 80 mls/hr 08/26/18 10:00 08/26/18 09:42 Parenteral Electrolytes IV 09/25/18 09:59 80 mls/hr .[id number] DHIRAJ Administration Ketorolac Tromethamine 30 mg 08/25/18 21:00 08/26/18 09:50 Toradol IV 08/26/18 20:59 30 mg Q6H PRN Administration Pain Ondansetron HCl 4 mg 08/25/18 19:26 08/26/18 09:51 Zofran IV 09/24/18 19:25 4 mg Q4H PRN Administration Nausea Pantoprazole Sodium 40 mg 08/26/18 06:30 08/26/18 05:45 Protonix PO 09/25/18 06:29 40 mg DAILYBB DHIRAJ Administration Tamsulosin HCl 0.4 mg 08/25/18 21:00 08/25/18 21:49 Flomax PO 09/24/18 20:59 0.4 mg HS DHIRAJ Administration NPO Date Last Intake of Fluids: 08/26/18 Time Last Intake of Fluids: 07:30 Last Intake of Fluids Comment: Sip of water with medication Date Last Intake of Solids: 08/25/18 Time Last Intake of Solids: 19:00 Past Medical History Medical History GERD (gastroesophageal reflux disease) History of IBS Kidney stones Migraine Exercise / Class Metabolic Activity II 4-5 Yardwork/Stairs/Walk up hill Past Family History Family History Mother Family history of diabetes mellitus Past Surgical History Surgical History History of section X 3 History of cystoscopy STENT INSERTION History of laparoscopy ECTOPTIC History of lithotripsy History of myringotomy History of tooth extraction Past Anesthesia History No Hx of Anesthesia Complications History of PONV No Hx of PONV and Hx of Motion Sickness Social History Smoking Status: Never smoker Do You Dip or Chew Tobacco: No Hx Alcohol Use: No Hx Substance Use: No substance use type: does not use Review of Systems Negative for chest pain or shortness of breath. Patient denies active symptoms of GERD. Physical Exam Vital Signs Last Vital Signs Temp 36.8 C 08/26/18 13:23 Pulse 72 08/26/18 13:23 Resp 18 08/26/18 13:23 BP 198/106 H 08/26/18 13:23 Pulse Ox 100 08/26/18 13:23 Constitutional not obese ENMT Mouth: no TMJ abnormality and oral opening not small Thyromental Distance: > or= 3.5 Finger Breadths Mallampati Class: II Neck normal visual inspection; neck extension not limited Respiratory normal respiratory effort Auscultation: lungs clear to auscultation bilaterally Cardiovascular Rate/Rhythm: regular rate and regular rhythm Heart Sounds: no murmur Neurologic moves all extremities Motor/Sensory: no sensory deficit Psychiatric Orientation: alert and oriented x 3 Testing Laboratory Results 08/26/18 06:19 08/26/18 06:19 08/25/18 16:54 Urine Color Yellow Urine Appearance Clear Urine pH 7.0 Ur Specific [place] 1.016 Urine Protein Negative Urine Glucose (UA) Negative Urine Ketones 1+ H Urine Nitrite Negative Ur Leukocyte Esterase Negative Urine WBC (Auto) 1-5 Urine RBC (Auto) 10-30 H U Hyaline Cast (Auto) 1-5 U Epithel Cells (Auto) 5-10 H Urine Bacteria (Auto) Negative Electrocardiogram Date: 08/24/18 Findings: + NSR @ (08)
[2018-08-26] MEDS ORDERED: fentaNYL citrate 100 MCG/2 ML VIAL IV PRN (13:48)
[2018-08-26] MEDS ORDERED: ATROPINE SULFATE 0.1 MG/ML 10ML SYR IV PRN (13:48)
[2018-08-26] MEDS ORDERED: ONDANSETRON INJ 2 MG/ML 2 ML VIAL IV PRN (13:48)
[2018-08-26] MEDS ORDERED: PROMETHAZINE HCL 12.5 MG in SODIUM CHLORIDE 0.9% 50 ML IV PRN (13:48)
[2018-08-26] MEDS ORDERED: ePHEDrine sulfate 50 MG/ML AMP IV PRN (13:48)
--- NOTE | 2018-08-26 14:23 | Operative Report ---
Post Operative Report Pre & Post Diagnosis Right obstructing Proximal ureter stone Same Operation Date: 08/26/18 15:25 <No data on this case meets the specified criteria> Procedure Cystoscopy with right retrograde pyelogram and stent placement. Operation Date: 08/26/18 15:25 <No data on this case meets the specified criteria> Surgeon Jake Deutsch, II, DO Box Sealing Machine Operator None Estimated Blood Loss 1 Findings Consistent with Post-Op Diagnosis Obstructing right proximal ureteral stone Specimens None Drains 6 Fr Multilength Right Anesthesia Type MAC Complications none Disposition Disposition: Recovery Room Indications Obstructing stone with intractable nausea. Risks and benefits discussed at length. Description of Procedure Patient was consented and brought back to the operating room. Patient was placed under anesthesia in the supine position and moved to the dorsal lithotomy position. Patient was prepped and draped in the regular sterile fashion. A time out was completed. A 30degree Cystoscope was placed into the bladder and the entire bladder was examined. The UO's were identified. The right was cannulized with a catheter and a retrograde pyelogram was completed. A wire was then placed. With the wire in place, a 6 Fr Double J stent was placed. It was confirmed with fluoroscopy. With the stent in place, the bladder was emptied. The scope was removed. The patient was cleaned, aroused from anesthesia, and transferred to the pacu in stable condition having tolerated the procedure well with no complications. I was present and participated in all aspects of the procedure. The patient will be monitored in the PACU until transferred. I attest to the content of the Intraoperative Record and any orders documented therein. Any exceptions are noted below.
--- NOTE | 2018-08-26 14:34 | Fluoroscopy Report ---
FL retrograde includes kub CLINICAL HISTORY: RT CYSTO/STENT COMPARISON STUDY: CT of the abdomen and pelvis August 24, 2018. KUB August 25, 2018. FLUOROSCOPY TIME: 24 seconds. FLUOROSCOPIC IMAGES: 2. FINDINGS: These images demonstrate placement of a right ureteral stent. Distal aspect of stent is wit hin the bladder. Proximal aspect of stent projects over the inferior right renal pelvis or lower pole calyx. Note is made of a small radiodensity along the right lateral aspect of the proximal stent. Th is may reflect the right ureteral calculus shown on prior CT. IMPRESSION: Fluoroscopic images from right retrograde exam with placement of a right ureteral stent and possible visualization of the proximal right ureteral calculus. Electronically signed by: Byron Restrepo M.D. 08/26/2018 2:33 PM
[2018-08-26] MEDS ORDERED: HydrALAZINE HCL 20 MG/ML VIAL IV STA (15:12)
[2018-08-26] MEDS ORDERED: HydrALAZINE HCL 20 MG/ML VIAL ONE (15:13)
[2018-08-26] MEDS ORDERED: LABETALOL HCL IV 5 MG/ML 20ML IV STA ×2 (15:46→16:37)
[2018-08-26] MEDS ORDERED: LABETALOL HCL IV 5 MG/ML 20ML IV ONE (16:12)
[2018-08-26] MEDS ORDERED: NIFEdipine EXTENDED REL 30 MG TABCR PO STA (18:38)
--- NOTE | 2018-08-26 20:13 | Anesthesiology Progress Note ---
Date of Service August 26, 2018 Anesthesia Post Procedure Vital Signs Vital Signs: Temp Pulse Pulse Pulse Resp BP BP 08/26/18 19:56 37.3 C 76 18 181/105 H 08/26/18 19:29 37.4 C 172/107 H 08/26/18 18:40 38 C H 72 16 176/98 H 08/26/18 18:19 194/98 H 08/26/18 18:11 37.6 C H 67 18 191/101 H 08/26/18 17:40 37.5 C 70 16 182/97 H 08/26/18 16:55 37.2 C 66 15 161/89 H 08/26/18 16:45 71 18 163/88 H 08/26/18 16:35 71 19 176/95 H 08/26/18 16:25 66 15 178/99 H 08/26/18 16:15 65 16 189/98 H 08/26/18 16:05 65 18 184/102 H 08/26/18 15:50 75 18 199/107 H 08/26/18 15:40 66 15 192/104 H 08/26/18 15:30 66 15 195/106 H 08/26/18 15:20 69 17 193/104 H 08/26/18 15:10 59 L 13 194/100 H 08/26/18 15:00 60 14 187/105 H 08/26/18 14:50 60 16 191/102 H 08/26/18 14:40 61 16 188/106 H 08/26/18 14:32 36.3 C L 72 15 180/103 H 08/26/18 13:23 36.8 C 72 18 198/106 H 08/26/18 07:53 36.8 C 67 18 150/88 H 08/25/18 23:06 37.0 C 70 16 143/75 H Pulse Ox 08/26/18 19:56 98 08/26/18 19:29 08/26/18 18:40 100 08/26/18 18:19 08/26/18 18:11 99 08/26/18 17:40 96 08/26/18 16:55 100 08/26/18 16:45 100 08/26/18 16:35 100 08/26/18 16:25 100 08/26/18 16:15 99 06/03/19 16:05 99 08/26/18 15:50 100 08/26/18 15:40 100 08/26/18 15:30 100 08/26/18 15:20 98 08/26/18 15:10 97 08/26/18 15:00 100 08/26/18 14:50 100 08/26/18 14:40 100 08/26/18 14:32 100 08/26/18 13:23 100 08/26/18 07:53 96 08/25/18 23:06 100 Pain Intensity Right: Pain Intensity: 1 Right Flank: Pain Intensity: 3 Transfer of Care Handoff Completed per policy Notes Mental Status: alert / awake / arousable and participated in evaluation Nausea / Vomiting: adequately controlled Pain: adequately controlled Airway Patency, RR, SpO2: stable & adequate BP & HR: stable & adequate Hydration State: stable & adequate Anesthetic Complications: no major complications apparent and Pt Satisfied with anesthetic care
--- NOTE | 2018-08-26 20:29 | Hospitalist Progress Note ---
Date of Service August 26, 2018 Assessment & Plan (1) Kidney stones: 5 mm proximal right ureteral calculus. recurrent pain, back to back hospital stays. patient requested surgical intervention. now s/p cystoscopy with stent placement. will need lithotripsy post-discharge per urology. no evidence of complicating UTI. but remains on cipro prophylaxis. cont pain meds, pyridium, etc. appreciate urology assistance. Present on Admission?: Yes (2) Elevated blood-pressure reading without diagnosis of hypertension: During May 2018 hospital stay, and her brief stay just prior to this one, ALL BP readings have been high. Even when not in pain BPs are high in both arms. No anxiety. I believe she likely has essential HTN. Some readings are nearly 200 systolic. Start nifedipine xr 30mg daily. Present on Admission?: Yes (3) GERD (gastroesophageal reflux disease): Continue PPI (4) Migraine: No current headaches. pain meds prn (5) Hypokalemia: replace IV/PO repeat BMP am (6) DVT prophylaxis: SCDs - Low DVT risk per admission calculator hopefully home tomorrow am if BPs improved Subjective right flank/abdominal pain still present but not as severe. saw patient pre-cystoscopy today and was resting comfortably. has uncle w/ kidney stones. no dyspnea/chest pain. BPs noted to be high. Review of Systems Constitutional: no fever, no chills and no fatigue Respiratory: no cough and no dyspnea Cardiovascular: no chest pain Genitourinary: no dysuria and no hematuria Physical Exam Constitutional: well developed, well nourished and + well hydrated; no acute distress and no altered mental status ENMT: external ear and nose normal, oropharynx normal Respiratory: normal respiratory effort, lungs clear to auscultation Cardiovascular: Rate/Rhythm: regular rate and regular rhythm Heart Sounds: normal S1 and normal S2; no murmur Vessels: posterior tibial pulses present and dorsalis pedis pulses present; no JVD Gastrointestinal (Abdomen): normal bowel sounds, soft, nontender, no hepatosplenomegaly no flank tenderness to palpation Psychiatric: A+Ox3, euthymic affect Results & Data Vital Signs (Past 12 Hours) Vital Signs Temp Pulse Pulse Pulse Resp BP BP 08/26/18 19:56 37.3 C 76 18 181/105 H 08/26/18 19:29 37.4 C 172/107 H 08/26/18 18:40 38 C H 72 16 176/98 H 08/26/18 18:19 194/98 H 08/26/18 18:11 37.6 C H 67 18 191/101 H 08/26/18 17:40 37.5 C 70 16 182/97 H 08/26/18 16:55 37.2 C 66 15 161/89 H 08/26/18 16:45 71 18 163/88 H 08/26/18 16:35 71 19 176/95 H 08/26/18 16:25 66 15 178/99 H 08/26/18 16:15 65 16 189/98 H 08/26/18 16:05 65 18 184/102 H 08/26/18 15:50 75 18 199/107 H 08/26/18 15:40 66 15 192/104 H 08/26/18 15:30 66 15 195/106 H 08/26/18 15:20 69 17 193/104 H 08/26/18 15:10 59 L 13 194/100 H 08/26/18 15:00 60 14 187/105 H 08/26/18 14:50 60 16 191/102 H 08/26/18 14:40 61 16 188/106 H 08/26/18 14:32 36.3 C L 72 15 180/103 H 08/26/18 13:23 36.8 C 72 18 198/106 H Pulse Ox 08/26/18 19:56 98 08/26/18 19:29 08/26/18 18:40 100 08/26/18 18:19 08/26/18 18:11 99 08/26/18 17:40 96 08/26/18 16:55 100 08/26/18 16:45 100 08/26/18 16:35 100 08/26/18 16:25 100 08/26/18 16:15 99 08/26/18 16:05 99 08/26/18 15:50 100 08/26/18 15:40 100 08/26/18 15:30 100 08/26/18 15:20 98 08/26/18 15:10 97 08/26/18 15:00 100 08/26/18 14:50 100 08/26/18 14:40 100 08/26/18 14:32 100 08/26/18 13:23 100 Laboratory Results Laboratory Results - last 24 hr 08/26/18 08/26/18 06:19 06:19 WBC 5.15 RBC 4.19 L Hgb 12.8 Hct 36.6 L MCV 87.4 MCH 30.5 MCHC 35.0 RDW Std Deviation 39.9 RDW Coeff of Charley 12.5 Plt Count 206 MPV 9.9 Sodium 141 Potassium 3.1 L Chloride 108 H Carbon Dioxide 26 Anion Gap 7.0 BUN 9 Creatinine 0.70 Est Cr Clr Drug Dosing 101.8 Est GFR ( Amer) 123.9 Est GFR (Non-Af Amer) 106.9 BUN/Creatinine Ratio 13.4 Glucose 84 Calcium 8.2 L Magnesium 2.0 (1) GERD (gastroesophageal reflux disease) Esophagitis presence: without esophagitis Qualified Code(s): K21.9 - Gastro- esophageal reflux disease without esophagitis (2) Migraine Migraine type: unspecified Status migrainosus presence: without status migrainosus Intractability: not intractable Qualified Code(s): G43.909 - Migraine, unspecified, not intractable, without status migrainosus
[2018-08-26] MEDS: TAMSULOSIN HCL 0.4 MG CAP PO SCH (20:45)
[2018-08-26] MEDS: PHENAZOPYRIDINE HCL 100 MG TAB PO PRN (20:45)
[2018-08-27] MEDS ORDERED: ACETAMINOPHEN 325 MG TAB PO PRN (03:39)
[2018-08-27] MEDS: POTASSIUM CHLORIDE 20 MEQ in NORMOSOL-R 1,000 ML IV SCH (03:48)
[2018-08-27] MEDS: PHENAZOPYRIDINE HCL 100 MG TAB PO PRN ×2 (05:21→14:26)
[2018-08-27] MEDS: PANTOprazole 40 MG TAB PO SCH (05:21)
[2018-08-27] MEDS ORDERED: SUMAtriptan succinate 50 MG TAB PO PRN (06:13)
[2018-08-27 07:21] LABS: BUN Creatinine Ratio 11.3 (10-20); Calcium 8.8 mg/dl (8.5-10.1); Creatinine Clr Calc Pharmacy 111.4 ml/min; Est GFR (African American) 127.6; Est GFR (Non-African American) 110.1; Potassium 3.6 mmol/L (3.5-5.1)
[2018-08-27] MEDS: ONDANSETRON INJ 2 MG/ML 2 ML VIAL IV PRN (08:02)
[2018-08-27] MEDS: CETIRIZINE HCL 10 MG TABLET PO SCH (08:43)
[2018-08-27] MEDS ORDERED: OXYBUTYNIN CHLORIDE 5 MG TAB PO STA (10:09)
[2018-08-27] MEDS ORDERED: AMLODIPINE BESYLATE 5 MG TAB PO SCH (10:30)
--- NOTE | 2018-08-27 10:38 | Anesthesiology Progress Note ---
Date of Service August 27, 2018 Anesthesia Post Procedure Vital Signs Vital Signs: Temp Pulse Pulse Pulse Resp BP BP 08/27/18 07:35 37.5 C 76 16 129/74 08/27/18 02:48 37.1 C 68 16 156/90 H 08/26/18 22:44 36.9 C 76 16 161/89 H 08/26/18 20:48 181/104 H 08/26/18 19:56 37.3 C 76 18 181/105 H 08/26/18 19:29 37.4 C 172/107 H 08/26/18 18:40 38 C H 72 16 176/98 H 08/26/18 18:19 194/98 H 08/26/18 18:11 37.6 C H 67 18 191/101 H 08/26/18 17:40 37.5 C 70 16 182/97 H 08/26/18 16:55 37.2 C 66 15 161/89 H 08/26/18 16:45 71 18 163/88 H 08/26/18 16:35 71 19 176/95 H 08/26/18 16:25 66 15 178/99 H 08/26/18 16:15 65 16 189/98 H 08/26/18 16:05 65 18 184/102 H 08/26/18 15:50 75 18 199/107 H 08/26/18 15:40 66 15 192/104 H 08/26/18 15:30 66 15 195/106 H 08/26/18 15:20 69 17 193/104 H 08/26/18 15:10 59 L 13 194/100 H 08/26/18 15:00 60 14 187/105 H 08/26/18 14:50 60 16 191/102 H 08/26/18 14:40 61 16 188/106 H 08/26/18 14:32 36.3 C L 72 15 180/103 H 08/26/18 13:23 36.8 C 72 18 198/106 H Pulse Ox 08/27/18 07:35 95 08/27/18 02:48 91 08/26/18 22:44 98 08/26/18 20:48 08/26/18 19:56 98 08/26/18 19:29 08/26/18 18:40 100 08/26/18 18:19 08/26/18 18:11 99 08/26/18 17:40 96 08/26/18 16:55 100 08/26/18 16:45 100 08/26/18 16:35 100 08/26/18 16:25 100 08/26/18 16:15 99 08/26/18 16:05 99 08/26/18 15:50 100 08/26/18 15:40 100 08/26/18 15:30 100 08/26/18 15:20 98 08/26/18 15:10 97 08/26/18 15:00 100 08/26/18 14:50 100 08/26/18 14:40 100 08/26/18 14:32 100 08/26/18 13:23 100 Notes Mental Status: alert / awake / arousable and participated in evaluation Nausea / Vomiting: adequately controlled Pain: adequately controlled Airway Patency, RR, SpO2: stable & adequate BP & HR: stable & adequate Hydration State: stable & adequate
[2018-08-27 12:33] LABS: Appearance Urine Clear (Clear); Bacteria Urine Automated Negative (Negative); Bilirubin Urine Negative (Negative); Blood Urine 3+ (Negative); Color Urine Dark Yellow; Glucose Urine UA Negative (Negative); Ketones Urine Negative (Negative); Leukocyte Esterase Urine Trace (Negative); Nitrite Urine Positive (Negative); Protein Urine Trace (Negative); RBC Urine Automated >30 /hpf (0-4); Specific Gravity Urine 1.007 (1.000-1.030); Urobilinogen Urine Negative (Negative)
--- NOTE | 2018-09-03 06:42 | Discharge Summary ---
Date of Service date of admission - 08/25/18 date of discharge - 08/27/18 Admission HPI Per Admitting Provider 42-year-old female with a history of GERD and recurrent kidney stones who presents with intractable pain due to a proximal right-sided kidney stone. She was actually discharged yesterday after requiring only Tylenol throughout the day for her right-sided kidney stone pain. She reports that she had minimal pain overnight, but this morning had intractable pain that was not resolved with the Toradol or Percocet with which she was discharged. She also reports that she had multiple episodes of nonbloody nonbilious emesis, and was therefore unsure if she could take further oral analgesic medication. She denies any fevers or chills, dysuria, shortness of breath, lightheadedness, dizziness, or other concerning findings. After 2 doses of Dilaudid and 1 of ketorolac, she reports that her pain is now a dull ache and tolerable. Principal Diagnosis obstructing right-sided proximal kidney stone s/p stent placement Discharge Exam Constitutional well developed, well nourished and + well hydrated; no acute distress and no altered mental status ENMT external ear and nose normal, oropharynx normal Respiratory normal respiratory effort, lungs clear to auscultation Cardiovascular Rate/Rhythm: regular rate and regular rhythm Heart Sounds: normal S1 and normal S2; no murmur Vessels: posterior tibial pulses present and dorsalis pedis pulses present; no JVD Gastrointestinal (Abdomen) normal bowel sounds, soft, nontender, no hepatosplenomegaly Psychiatric A+Ox3, euthymic affect Discharge Data Allergies Allergy/AdvReac Type Severity Reaction Status Date / Time pomegranate Allergy Intermediate Hives Verified 08/30/18 10:12 Consultations urology - Jake Deutsch DO Procedures Performed Operation Date: 08/26/18 Cystoscopy, Retrograde pyelogram,Right Ureteral Stent Placement - Jake Deutsch II, DO Hospital Course (1) Kidney stones: 5 mm proximal right ureteral calculus. This has caused recurrent pain and back to back hospital stays. Patient requested surgical intervention. Seen by urology from [facility] and underwent cystoscopy with right-sided stent placement by Dr. Deutsch. Post-op had considerable pain, dysuria, and bladder spasm. She will remain on flomax, pain meds, pyridium and oxybutinin post-discharge. Repeat u/a post-op was possibly consistent with UTI. Thus, while awaiting urine culture, she was placed on a 7-day course of keflex to take at home. She will follow-up with Dr Deutsch as an outpatient for lithotripsy and stent management. (2) Elevated blood-pressure reading without diagnosis of hypertension: During May 2018 hospital stay, and her brief stay just prior to this one, ALL BP readings have been high. Some systolic BPs were in the 180-200 range. Even when not in pain BPs were high in both arms. No anxiety. I believe she likely has essential HTN. Start nifedipine xr 30mg daily and converted to amlodipine 5mg daily at discharge. Advised to purchase home BP cuff and monitor her values. Follow-up with PCP recommended. (3) GERD (gastroesophageal reflux disease): Continue PPI (4) Migraine: No current headaches during the stay. pain meds prn. (5) Hypokalemia: replaced IV/PO and normalized before discharge. Total Time Total Time Spent Total Time Spent (In Minutes): 30 Total Time Includes: Examination of the Patient, Discharge Planning and Medication Reconciliation Discharge Plan Discharge Items Patient Disposition: Home - Self-Care Reason For Visit: KIDNEY STONE Discharge Diagnosis: right sided kidney stone with placement of stent. concern for urinary tract infection. Discharge Goals: Diagnostic testing and Therapeutic intervention Activity: As commented below Activity Comment: please take it easy until your stone is removed; no strenuous activities Driving/Machine Use Comment: no driving while taking prescription pain medication Non-emergency contact: Primary Care Provider and Urologist Call non-emergency contact if: you have any medication questions, your symptoms worsen, your pain is not controlled, your pain is worsening, your pain is unusual for you, your pain is concerning for you and your temperature is above 100.5 Follow-up/Referrals: Jake Deutsch II, DO [Physician] - (see Dr Deutsch within 1 week for stone and stent management) Anton Altamirano MD [Primary Care Provider] - 08/30/18 12:45 pm (Please follow up with Dr. Anton Altamirano on SundayAugust 30 at 12:45pm at [facility] in [place]. If you have any questions or need to reschedule, please call the office .) Diet: Regular Addtl Provider Instructions: From Diomedes Ray - Hospitalist - You were treated for right-sided kidney stone with pain medication, IV fluids, and ultimately a stent. The stent was placed by Dr Jake Deutsch. The stone is still present and you will need lithotripsy to remove it. Your urinalysis from 08/27/18 is mildly suggestive of urinary tract infection. This may be contributing to some of the bladder symptoms you are having. Even if UTI is not present many individuals have bladder pain & spasm along with "stent" pain following the type of procedure you had. It also appears that you may have high blood pressure as more than >95% of your BP readings have been high; some have been severe. Recommendations - 1. for suspected high blood pressure - * take amlodipine 5mg once daily starting tomorrow * common side effects - constipation, swelling in feet (these tend to occur more so in seniors) 2. for possible UTI - take cephalexin 500mg twice a day for 7 days. I will call you if your urine culture result shows something that requires a change in the antibiotic. 3. for nausea/vomiting - take ondansetron 4mg every 6 hours as needed. 4. for bladder pain/spasms - take oxybutinin 5mg every 12 hours as needed. 5. for burning of urination - take pyridium (phenazopyridine) 100mg every 8 hours as needed. This medication will turn your urine orange color. 6. during the prior stay you were prescribed oxycodone for pain. You may continue this medication. Do not drink alcohol or drive a car while taking oxycodone. Do not take extra tylenol when taking oxycodone as the pain killer already has tylenol in it. The pain killers cause constipation. Take [id number] miralax and/or senakot for constipation. 7. check your blood pressure once a day at home and show these to your family doctor. 8. know that antibiotics interfere with the effectiveness of control pills. Thus, until your next menstrual cycle, be sure to use a second form of control. Follow-up - 1. see [facility] within 1 week 2. see your family doctor as scheduled Return to [facility] if - 1. you have uncontrolled back/flank/abdominal pain 2. you have severe bladder pain 3. you have inability to urinate 4. you have severe burning on urination despite taking the prescribed medications 5. fevers over 100.5 degrees 6. severe constipation or diarrhea 7. persistent vomiting 8. any other concerns Prescriptions: New amlodipine [Norvasc] 5 mg Tablet 5 mg PO QAM Qty: 30 RF: 2 phenazopyridine [Pyridium] 100 mg Tablet 100 mg PO TID PRN (Reason: urinary pain/burning) Qty: 30 RF: 0 oxybutynin chloride 5 mg tablet 5 mg PO BID PRN (Reason: bladder spasms) Qty: 20 RF: 0 ondansetron 4 mg tablet,disintegrating 4 mg PO Q6H PRN (Reason: nausea and vomiting) Qty: 14 RF: 0 Continued pantoprazole [Protonix] 40 mg Tablet,Delayed Release (Dr/Ec) 40 mg PO QAM RF: 0 Zyrtec 10 mg Capsule 10 mg PO QAM RF: 0 Junel FE 1.5/30 (28) 1.5 mg-30 mcg (21)/75 mg (7) tablet 1 tab PO DAILY RF: 0 tamsulosin 0.4 mg capsule 0.4 mg PO HS Qty: 14 RF: 0 oxycodone-acetaminophen [Percocet] 5-325 mg tablet 1 tab PO Q8H PRN (Reason: pain) Qty: 10 RF: 0 No Action ketorolac 30 mg PO Q8 PRN (Reason: Pain) RF: 0 Stand-Alone Forms: [employer], [facility] [employer]/Other Patient Handouts: Stents Ureteral Discharge Orders: Discharge Order (Routine); Ordered 08/27/18 Ordered By: Diomedes Ray Admission Data Admit Date/Time: 08/25/18 18:22 Attending Provider: Diomedes Ray Admit Provider: Mike Shin Primary Care Provider: Anton Altamirano Other Providers: Hugh Shin I. Service: Medical Other Interventions: Discharge Summary Assessment (RN) Last Done: 08/27/18 17:08 Pending Studies at Discharge: Yes Studies:: Urine culture DC Date/Time DO NOT enter until pt leaves facility: 08/27/18 19:20
== END 2018-08-27 19:20 | disposition home or self-care (01) ==
LOC: ED 14:58 → 3W 14:58 → SUATTDRO 18:22 → 3W 18:51
DX: G43.709 Chronic migraine without aura, not intractable, without status migrainosus; Z87.442 Personal history of urinary calculi; N20.1 Calculus of ureter; Z79.899 Other long term (current) drug therapy; K21.9 Gastro-esophageal reflux disease without esophagitis